=== PATIENT | male | born 1995 | race Caucasian/White ===

== ENCOUNTER 2018-04-06 15:49 | Emergency (ER) | payer OTHER, SELFPAY ==
[2018-04-06 15:49] VITALS: BP 162/97; PULSE 84; RESP 16; TEMP 36.6; O2SAT 98; BMI 35.6
--- NOTE | 2018-04-06 16:19 | ED.DCSUM_ITS ---
- ER Visit Summary Date of Service: 04/06/18 Chief Complaint: Left lower hanson laceration History of Present Illness: The patient is a 22 M accidentally struck his left lower leg versus a toe hitch. Causing a laceration. Denies other injuries. Tetanus up-to-date 1 year ago. Physical Examination: Well-appearing young male. Vital signs stable afebrile. No distress. H EENT exam unremarkable. Neck nontender. Lungs clear to auscultation. Heart regular rhythm no murmur. Chest wall nontender. Abdomen soft nontender. He is moving all 4 extremities. They are neurovascularly intact. His left lower leg as a vertical irregular laceration. This will need to be repaired. There is mild oozing of blood. Distally his left foot is neurovascularly intact with dorsi plantarflexion. Foot and ankle are nontender. He has normal range of motion. Normal touch sensation. Test Results: None Emergency Department Course and Treatment: Procedure note: Left lower leg laceration repair. Locally anesthetized with lidocaine. Cleaned with iodine. Irrigated wash with saline. Explored. Closed using simple interrupted # 6 4- 0 Ethilon suture. Proper hemostasis wound closure was obtained. Patient tolerated procedure well. He was instructed on wound care. Treatment Plan: Ice and elevate. Motrin for pain. Suture removal in 10 days. Watch for any signs of infection. Disposition: Discharged Impression: Left lower leg laceration with ER repair of 5 cm This note was generated with [employer] dictation software. It may contain incorrect words, spelling, and punctuation that were not noted in review of the chart prior to signing ED Disposition - Plan for ED Patient: Disposition: Home or Assisted Living Chief Complaint: Laceration Instructions: ED Laceration All Referrals: Dusty Tucker MD [Primary Care Provider] - 10 Day for suture removal Additional Instructions: Keep wound clean and dry. Wash daily with soap and water or peroxide and water. Dry thoroughly. May shower. Do not soak in dirty water. Motrin and/or Tylenol for pain. Ice to the area. Stitches out in 10 days. Watch for any signs of infection.
--- NOTE | 2018-04-06 16:24 | DCINST.ED_ITS ---
ED Disposition - Plan for ED Patient: Disposition: Home or Assisted Living Chief Complaint: Laceration Instructions: ED Laceration All Referrals: Dusty Tucker MD [Primary Care Provider] - 10 Day for suture removal Additional Instructions: Keep wound clean and dry. Wash daily with soap and water or peroxide and water. Dry thoroughly. May shower. Do not soak in dirty water. Motrin and/or Tylenol for pain. Ice to the area. Stitches out in 10 days. Watch for any signs of infection.
[2018-04-06] MEDS: Ibuprofen 600 MG Tablet PO (16:57)
== END 2018-04-06 17:47 | disposition home or self-care (01) ==
LOC: ED 17:38
PROVIDERS: Emergency Provider Emergency Medicine; Family Provider Family Medicine; PCP Family Medicine
DX: S81.812A Laceration without foreign body, left lower leg, initial encounter (principal); W22.8XXA Striking against or struck by other objects, initial encounter; Y93.9 Activity, unspecified; Y92.89 Other specified places as the place of occurrence of the external cause; Y99.9 Unspecified external cause status; Z72.0 Tobacco use
CPT/HCPCS: 12002; 99284

== ENCOUNTER 2018-05-06 15:12 | Outpatient (RCR) | payer OTHER, SELFPAY ==
[2018-05-06 15:37] VITALS: BP 147/92; PULSE 95; RESP 18; TEMP 37.5
--- NOTE | 2018-05-06 17:11 | PCM.WC.HP ---
(1) Ulcer of left lower extremity with fat layer exposed Status: Acute Current Visit: Yes Code(s): L97.922 - Non-pressure chronic ulcer of unspecified part of left lower leg with fat layer exposed (2) Traumatic leg ulcer Status: Acute Current Visit: Yes Code(s): L97.909 - Non-pressure chronic ulcer of unspecified part of unspecified lower leg with unspecified severity History of Present Illness Date of Service: 05/06/18 Chief Complaint: Non healing ulcer to left anterior lower leg. History of Wound: Non healing ulcer to left anterior lower leg that was obtained 04/13/18 when he hit his hanson on the hitch of his truck. He went to the ED where they closed it with sutures. His sister is a nurse and she removed the sutures a week later, then it re-opened after the sutures were removed. He went to his PCP, Dr. Tucker, last week who started him on Keflex 05/03/18 for redness and referred him to the wound center. 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 Will obtain wound cultures today 05/06/18 and start him on Natasha to the open ulcer. Past Medical History Past Medical History: No medical history reported. Denies history of diabetes, asthma or thyroid issues. Surgical History: no surgical history Allergies/Adverse Reactions: Allergies No Known Allergies Allergy (Verified 05/06/18 15:53) Home Medications: Ambulatory Orders Medication Instructions Recorded Cephalexin [Keflex] 500 mg PO 05/06/18 Smoking Status: Never smoker Review of Systems Constitutional: Denies: Anorexia, Chills, Fever Eyes: Denies: Blurred vision, Double vision HEENT: Denies: Difficulty Hearing, Head Aches Cardiovascular: Denies: Chest Pain, Edema Respiratory: Denies: Cough, Shortness of Breath, Shortness of breath at rest Gastrointestinal: Denies: Abdominal Pain Musculoskeletal: Denies: Muscle pain Skin: Reports: Wounds - Left lower anterior leg non healing ulcer Neurological: Denies: Balance problems, Blurred vision, Double vision, Difficulty swallowing Psychiatric: Denies: Anxiety, Depression, Homicidal Ideations, Suicidal Ideations Hematologic/ Lymphatic: Denies: Easy Bruising, Easy Bleeding, Hx of blood clot - Physical Exam Vital Signs Temp Pulse Resp BP 99.5 F H 95 18 147/92 H 05/06/18 15:37 10/23/18 15:37 05/06/18 15:37 05/06/18 15:37 General: Alert, Oriented x3, Cooperative HEENT: Atraumatic Oral: Moist Mucosa Lungs: Clear to auscultation, Normal air movement, No rhonchi Cardiovascular: Regular rate, Regular Rhythm Extremities: No edema, Capillary Refill Less than 3 Seconds Skin: Ulcer/ Wound - Left anterior lower leg ulcer with scabbing. No drainage. Wound Measurements and Assessment WC - Nurse 1 - General Ulcer Measurement Start: 05/06/18 15:16 Freq: Status: Active Protocol: Activity Type Activity Date Activity User E-Sign Co-Sign Detail Recorded Client Recorded Date Recorded By Document 05/06/18 15:37 DL [id number] 05/06/18 15:51 DL 05/06/18 15:37 Wound Center Nurse 1 [Ulcer Assessment] #1 L Hanson -Current Size (cm) - Length 2.8 -Current Size (cm) - Width 1.8 -Current Size (cm) - Depth 0.2 -Total Square Cm 5.04 -Photo Taken Yes -Classification - Thickness Unclassifiable (Eschar Covered ) -Exudate Amt Small (1-33%) -Exudate Type Sanguineous -Wound Margin Distinct, Outline Attached -Granulation Amt None Present (0 %) -Necrosis Amt Large (67-100%) -Necrotic Tissue Type Eschar -Structure Exposed N/A -Texture (Cat-wound Skin Appearance) Localized Edema -Moisture (Cat-wound Skin Appearance No Abnormality ) -Color (Cat-wound Skin Appearance) Erythema -Temperature (Cat-wound Skin No Abnormality Appearance) (Pt Warm) -Ulcer Cleansing Wound Cleanser -Foul Odor after Cleansing No -Anesthetic Used 4% Lidocaine Solution [Edema Assessment] -Right Calf (cm) 39 -Right Ankle (cm) 22.5 -Left Calf (cm) 40 -Left Ankle (cm) 23.4 WC - Nurse 2 - General Ulcer CM Notes Start: 05/06/18 15:16 Freq: Status: Active Protocol: Activity Type Activity Date Activity User E-Sign Co-Sign Detail Recorded Client Recorded Date Recorded By Document 05/06/18 16:27 JF [id number] 05/06/18 16:32 JF 05/06/18 16:27 Wound Center Nurse 2 [Procedure/Treatment] #1 L Hanson -Time 16:31 -Correct Patient Yes -Correct Side, Site, Position Yes -Correct Procedure Yes -Procedure Performed Yes -Type of Procedure Debridement -Clinical Debridement Subcutaneous -Post Debridement Size (cm) - Length 3.2 -Post Debridement Size (cm) - Width 1.4 -Post Debridement Size (cm) - Depth 0.6 -Total Square Cm 4.48 -Wound/Ulcer Outcome Not Healed -Ulcer Cleansing Rinsed/ Irrigated with Saline -Foul Odor after Cleansing No -Bioengineered Tissue No -Bleeding Controlled with Pressure -Treatment Response Procedure Tolerated Well [See Physician Procedure note for Specifics] Pain Scale: 0-10 Numeric [Pain] -Is Patient Pain Free? Yes Musculoskeletal: No Tenderness to Palpation of Joints or Extremities Neurological: Neuro grossly intact Psych/Mental Status: Normal Affect, Appropriate Debridement Note Post-Debridement Measurements/Treatment WC - Nurse 2 - General Ulcer CM Notes Start: 05/06/18 15:16 Freq: Status: Active Protocol: Activity Type Activity Date Activity User E-Sign Co-Sign Detail Recorded Client Recorded Date Recorded By Document 05/06/18 16:27 [id number] 05/06/18 16:32 05/06/18 16:27 Wound Center Nurse 2 #1 L Hanson -Time 16:31 -Correct Patient Yes -Correct Side, Site, Position Yes -Correct Procedure Yes -Procedure Performed Yes -Type of Procedure Debridement -Clinical Debridement Subcutaneous -Post Debridement Size (cm) - Length 3.2 -Post Debridement Size (cm) - Width 1.4 -Post Debridement Size (cm) - Depth 0.6 -Total Square Cm 4.48 -Wound/Ulcer Outcome Not Healed -Ulcer Cleansing Rinsed/ Irrigated with Saline -Foul Odor after Cleansing No -Bioengineered Tissue No -Bleeding Controlled with Pressure -Treatment Response Procedure Tolerated Well Pain Scale: 0-10 Numeric Is Patient Pain Free? Yes Wound debrided: Left lower anterior leg Laterality: Left Type of Debridement: Excisional debridement Anesthesia Used: 4% Lidocaine Solution Depth: Down to and including healthy tissue, in the subcutaneous layer Percentage of wound debrided: 100 Instrument Used: 7mm curette Tissue Removed: Subcutaneous tissue and slough. Severity: Fat Layer Exposed Amount of bleeding with debridement: Mild Bleeding Controlled with: Pressure Patient tolerated procedure well Removed non viable tissue and slough. Assessment/Plan Active Problems Ulcer of left lower extremity with fat layer exposed (Acute) Traumatic leg ulcer (Acute) Assessment: 1. Ulcer of left lower extremity with fat layer exposed (Acute). 2. Traumatic leg ulcer (Acute) Plan: The patient was seen and examined at the wound center today and was updated on the plan of care. A subcutaneous debridement was performed today. The patient tolerated the procedure well. The patients wound care will consist of Natasha to the left anterior, lower leg ulcer. He will alos wear tubigrip double layer compression to his left lower leg. Wound cultures obtained today. He will continue the Keflex as previously ordered by PCP. The patient educated on the importance of diet on wound healing and instructed to increase protein intake. Patient verbalized understanding. Patient will follow up at the wound healing center in one week with Jace Bojorquez and 2 weeks with . Code Visit Office Visits / Consults: [id number] OV L3 New - 25 modifier 111xxx-113xx: [id number] Sharon subq tissue 20 sq cm/<
--- NOTE | 2018-05-06 17:17 | HP.PCM_ITS ---
(1) Ulcer of left lower extremity with fat layer exposed Status: Acute Current Visit: Yes Code(s): L97.922 - Non-pressure chronic ulcer of unspecified part of left lower leg with fat layer exposed (2) Traumatic leg ulcer Status: Acute Current Visit: Yes Code(s): L97.909 - Non-pressure chronic ulcer of unspecified part of unspecified lower leg with unspecified severity History of Present Illness Date of Service: 05/06/18 Chief Complaint: Non healing ulcer to left anterior lower leg. History of Wound: Non healing ulcer to left anterior lower leg that was obtained 04/13/18 when he hit his hanson on the hitch of his truck. He went to the ED where they closed it with sutures. His sister is a nurse and she removed the sutures a week later, then it re-opened after the sutures were removed. He went to his PCP, Dr. Tucker, last week who started him on Keflex 05/03/18 for redness and referred him to the wound center. 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 Will obtain wound cultures today 05/06/18 and start him on Natasha to the open ulcer. Past Medical History Past Medical History: No medical history reported. Denies history of diabetes, asthma or thyroid issues. Surgical History: no surgical history Allergies/Adverse Reactions: Allergies No Known Allergies Allergy (Verified 05/06/18 15:53) Home Medications: Ambulatory Orders Medication Instructions Recorded Cephalexin [Keflex] 500 mg PO 05/06/18 Smoking Status: Never smoker Review of Systems Constitutional: Denies: Anorexia, Chills, Fever Eyes: Denies: Blurred vision, Double vision HEENT: Denies: Difficulty Hearing, Head Aches Cardiovascular: Denies: Chest Pain, Edema Respiratory: Denies: Cough, Shortness of Breath, Shortness of breath at rest Gastrointestinal: Denies: Abdominal Pain Musculoskeletal: Denies: Muscle pain Skin: Reports: Wounds - Left lower anterior leg non healing ulcer Neurological: Denies: Balance problems, Blurred vision, Double vision, Difficulty swallowing Psychiatric: Denies: Anxiety, Depression, Homicidal Ideations, Suicidal Ideations Hematologic/ Lymphatic: Denies: Easy Bruising, Easy Bleeding, Hx of blood clot - Physical Exam Vital Signs Temp Pulse Resp BP 99.5 F H 95 18 147/92 H 05/06/18 15:37 10/23/18 15:37 05/06/18 15:37 05/06/18 15:37 General: Alert, Oriented x3, Cooperative HEENT: Atraumatic Oral: Moist Mucosa Lungs: Clear to auscultation, Normal air movement, No rhonchi Cardiovascular: Regular rate, Regular Rhythm Extremities: No edema, Capillary Refill Less than 3 Seconds Skin: Ulcer/ Wound - Left anterior lower leg ulcer with scabbing. No drainage. Wound Measurements and Assessment WC - Nurse 1 - General Ulcer Measurement Start: 05/06/18 15:16 Freq: Status: Active Protocol: Activity Type Activity Date Activity User E-Sign Co-Sign Detail Recorded Client Recorded Date Recorded By Document 05/06/18 15:37 DL [id number] 05/06/18 15:51 DL 05/06/18 15:37 Wound Center Nurse 1 [Ulcer Assessment] #1 L Hanson -Current Size (cm) - Length 2.8 -Current Size (cm) - Width 1.8 -Current Size (cm) - Depth 0.2 -Total Square Cm 5.04 -Photo Taken Yes -Classification - Thickness Unclassifiable (Eschar Covered ) -Exudate Amt Small (1-33%) -Exudate Type Sanguineous -Wound Margin Distinct, Outline Attached -Granulation Amt None Present (0 %) -Necrosis Amt Large (67-100%) -Necrotic Tissue Type Eschar -Structure Exposed N/A -Texture (Cat-wound Skin Appearance) Localized Edema -Moisture (Cat-wound Skin Appearance No Abnormality ) -Color (Cat-wound Skin Appearance) Erythema -Temperature (Cat-wound Skin No Abnormality Appearance) (Pt Warm) -Ulcer Cleansing Wound Cleanser -Foul Odor after Cleansing No -Anesthetic Used 4% Lidocaine Solution [Edema Assessment] -Right Calf (cm) 39 -Right Ankle (cm) 22.5 -Left Calf (cm) 40 -Left Ankle (cm) 23.4 WC - Nurse 2 - General Ulcer CM Notes Start: 05/06/18 15:16 Freq: Status: Active Protocol: Activity Type Activity Date Activity User E-Sign Co-Sign Detail Recorded Client Recorded Date Recorded By Document 05/06/18 16:27 [email or web address] [id number] 05/06/18 16:32 JF 05/06/18 16:27 Wound Center Nurse 2 [Procedure/Treatment] #1 L Hanson -Time 16:31 -Correct Patient Yes -Correct Side, Site, Position Yes -Correct Procedure Yes -Procedure Performed Yes -Type of Procedure Debridement -Clinical Debridement Subcutaneous -Post Debridement Size (cm) - Length 3.2 -Post Debridement Size (cm) - Width 1.4 -Post Debridement Size (cm) - Depth 0.6 -Total Square Cm 4.48 -Wound/Ulcer Outcome Not Healed -Ulcer Cleansing Rinsed/ Irrigated with Saline -Foul Odor after Cleansing No -Bioengineered Tissue No -Bleeding Controlled with Pressure -Treatment Response Procedure Tolerated Well [See Physician Procedure note for Specifics] Pain Scale: 0-10 Numeric [Pain] -Is Patient Pain Free? Yes Musculoskeletal: No Tenderness to Palpation of Joints or Extremities Neurological: Neuro grossly intact Psych/Mental Status: Normal Affect, Appropriate Debridement Note Post-Debridement Measurements/Treatment WC - Nurse 2 - General Ulcer CM Notes Start: 05/06/18 15:16 Freq: Status: Active Protocol: Activity Type Activity Date Activity User E-Sign Co-Sign Detail Recorded Client Recorded Date Recorded By Document 05/06/18 16:27 [id number] 05/06/18 16:32 05/06/18 16:27 Wound Center Nurse 2 #1 L Hanson -Time 16:31 -Correct Patient Yes -Correct Side, Site, Position Yes -Correct Procedure Yes -Procedure Performed Yes -Type of Procedure Debridement -Clinical Debridement Subcutaneous -Post Debridement Size (cm) - Length 3.2 -Post Debridement Size (cm) - Width 1.4 -Post Debridement Size (cm) - Depth 0.6 -Total Square Cm 4.48 -Wound/Ulcer Outcome Not Healed -Ulcer Cleansing Rinsed/ Irrigated with Saline -Foul Odor after Cleansing No -Bioengineered Tissue No -Bleeding Controlled with Pressure -Treatment Response Procedure Tolerated Well Pain Scale: 0-10 Numeric Is Patient Pain Free? Yes Wound debrided: Left lower anterior leg Laterality: Left Type of Debridement: Excisional debridement Anesthesia Used: 4% Lidocaine Solution Depth: Down to and including healthy tissue, in the subcutaneous layer Percentage of wound debrided: 100 Instrument Used: 7mm curette Tissue Removed: Subcutaneous tissue and slough. Severity: Fat Layer Exposed Amount of bleeding with debridement: Mild Bleeding Controlled with: Pressure Patient tolerated procedure well Removed non viable tissue and slough. Assessment/Plan Active Problems Ulcer of left lower extremity with fat layer exposed (Acute) Traumatic leg ulcer (Acute) Assessment: 1. Ulcer of left lower extremity with fat layer exposed (Acute). 2. Traumatic leg ulcer (Acute) Plan: The patient was seen and examined at the wound center today and was updated on the plan of care. A subcutaneous debridement was performed today. The patient tolerated the procedure well. The patients wound care will consist of Natasha to the left anterior, lower leg ulcer. He will alos wear tubigrip double layer compression to his left lower leg. Wound cultures obtained today. He will continue the Keflex as previously ordered by PCP. The patient educated on the importance of diet on wound healing and instructed to increase protein intake. Patient verbalized understanding. Patient will follow up at the wound healing center in one week with Jace Bojorquez and 2 weeks with . Code Visit Office Visits / Consults: [id number] OV L3 New - 25 modifier 111xxx-113xx: [id number] Sharon subq tissue 20 sq cm/<
--- NOTE | 2018-05-09 16:47 | WC ---
Culture reports reviewed by Erwin Marti NP. Order for AUGMENTIN 875 mg p.o. BID X's 10 days. Patient cell # called since no pharmacy is listed in Medical Record. Voice Mail message left.
== END 2018-05-14 23:59 ==
LOC: WC 15:12
PROVIDERS: Family Provider Family Medicine; PCP Family Medicine; Visit Provider Nurse Practitioner Family
DX: L97.822 Non-pressure chronic ulcer of other part of left lower leg with fat layer exposed (principal)
CPT/HCPCS: 11042; 87070; 87075; 87077; 87186; 87205; 99213; G0463

== ENCOUNTER 2018-06-10 16:00 | Outpatient (RCR) | payer OTHER, SELFPAY ==
[2018-05-15 02:12] VITALS: BP 147/92; PULSE 95; RESP 18; TEMP 37.5
[2018-05-15 14:24] VITALS: BP 147/96; PULSE 91; RESP 16; TEMP 36.7
[2018-05-20 14:36] VITALS: BP 141/99; PULSE 108; RESP 18; TEMP 37.3
--- NOTE | 2018-05-20 16:11 | PCM.WC.PN ---
(1) Ulcer of left lower extremity with fat layer exposed Status: Acute Current Visit: Yes Code(s): L97.922 - Non-pressure chronic ulcer of unspecified part of left lower leg with fat layer exposed (2) Traumatic leg ulcer Status: Acute Current Visit: Yes Code(s): L97.909 - Non-pressure chronic ulcer of unspecified part of unspecified lower leg with unspecified severity Type of Wound Date of Service: 05/20/18 Chief Complaint: Non healing ulcer to left anterior lower leg. History of Wound: Non healing ulcer to left anterior lower leg that was obtained 04/13/18 when he hit his hanson on the hitch of his truck. He went to the ED where they closed it with sutures. His sister is a nurse and she removed the sutures a week later, then it re-opened after the sutures were removed. He went to his PCP, Dr. Tucker, last week who started him on Keflex 05/03/18 for redness and referred him to the wound center. 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 Will obtain wound cultures today 05/06/18 and start him on Natasha to the open ulcer. Progress of Wound: Wound is improving, patient is utilizing daily Natasha dressing changes, patient is tolerating antibiotics well. Wound culture did show strep agalactai. - Physical Exam Vital Signs Temp Pulse Resp BP 99.1 F 108 H 18 141/99 H 05/20/18 14:36 05/20/18 14:36 05/20/18 14:36 05/20/18 14:36 General: Alert, Oriented x3, Cooperative HEENT: Atraumatic Oral: Moist Mucosa Lungs: Normal air movement Cardiovascular: Regular rate Extremities: No edema, Capillary Refill Less than 3 Seconds, Peripheral Pulses Normal Skin: Ulcer/ Wound - Left anterior lower leg. Wound Measurements and Assessment WC - Nurse 1 - General Ulcer Measurement Start: 05/15/18 14:23 Freq: Status: Active Protocol: Activity Type Activity Date Activity User E-Sign Co-Sign Detail Recorded Client Recorded Date Recorded By Document 05/20/18 14:36 TM [id number] 05/20/18 14:38 TM 05/20/18 14:36 Wound Center Nurse 1 [Ulcer Assessment] #1 L Hanson -Combined with other wound No -Current Size (cm) - Length 2.0 -Current Size (cm) - Width 1.0 -Current Size (cm) - Depth 0.2 -Total Square Cm 2.00 -Photo Taken No -Epithelialization Small 1-33% -Tunneling No -Undermining/Tunneling No -Circular Undermining No -Classification - Thickness Full Thickness without Exposed Support Structure -Exudate Amt Small (1-33%) -Exudate Type Serosanguineous -Wound Margin Distinct, Outline Attached -Granulation Amt Medium (34-66%) -Granulation Quality Red -Slough/Fibrin Yes -Necrosis Amt Small (1-33%) -Necrotic Tissue Type Adherent Slough -Structure Exposed Fascia Fat Layer Exposed -Texture (Cat-wound Skin Appearance) Assessed Scarring -Moisture (Cat-wound Skin Appearance Assessed ) Maceration -Color (Cat-wound Skin Appearance) Assessed Erythema -Temperature (Cat-wound Skin No Abnormality Appearance) (Pt Warm) -Tenderness on Palpation (Cat-wound No Skin Appearance) -Ulcer Cleansing Rinsed/ Irrigated with Saline -Foul Odor after Cleansing No -Anesthetic Used 4% Lidocaine Solution [Edema Assessment] -Lower Limb Edema Present Yes -Left Calf (cm) 40.0 -Point of Measurement (cm from the 24.0 medial instep) WC - Nurse 2 - General Ulcer CM Notes Start: 05/15/18 14:23 Freq: Status: Active Protocol: Activity Type Activity Date Activity User E-Sign Co-Sign Detail Recorded Client Recorded Date Recorded By Document 05/20/18 14:55 [email or web address] [id number] 05/20/18 14:56 [email or web address] 05/20/18 14:55 Wound Center Nurse 2 [Procedure/Treatment] #1 L Hanson -Time 14:55 -Correct Patient Yes -Correct Side, Site, Position Yes -Correct Procedure Yes -Procedure Performed Yes -Type of Procedure Debridement -Clinical Debridement Subcutaneous -Post Debridement Size (cm) - Length 2.0 -Post Debridement Size (cm) - Width 1.1 -Post Debridement Size (cm) - Depth 0.4 -Total Square Cm 2.20 -Wound/Ulcer Outcome Not Healed -Ulcer Cleansing Rinsed/ Irrigated with Saline -Foul Odor after Cleansing No -Bioengineered Tissue No -Bleeding Controlled with Pressure -Treatment Response Procedure Tolerated Well [See Physician Procedure note for Specifics] Pain Scale: 0-10 Numeric [Pain] -Is Patient Pain Free? Yes Debridement Note Post-Debridement Measurements/Treatment WC - Nurse 2 - General Ulcer CM Notes Start: 05/15/18 14:23 Freq: Status: Active Protocol: Activity Type Activity Date Activity User E-Sign Co-Sign Detail Recorded Client Recorded Date Recorded By Document 05/15/18 15:17 [id number] 05/15/18 15:18 Document 05/20/18 14:55 [id number] 05/20/18 14:56 05/15/18 05/20/18 15:17 14:55 Wound Center Nurse 2 #1 L Hanson -Time 15:17 14:55 -Correct Patient Yes Yes -Correct Side, Site, Position Yes Yes -Correct Procedure Yes Yes -Procedure Performed Yes Yes -Type of Procedure Debridement Debridement -Clinical Debridement Subcutaneous Subcutaneous -Post Debridement Size (cm) - Length 3.0 2.0 -Post Debridement Size (cm) - Width 1.5 1.1 -Post Debridement Size (cm) - Depth 0.5 0.4 -Total Square Cm 4.50 2.20 -Wound/Ulcer Outcome Not Healed Not Healed -Ulcer Cleansing Rinsed/ Rinsed/ Irrigated with Irrigated with Saline Saline -Foul Odor after Cleansing No No -Bioengineered Tissue No No -Topical Lidocaine (%) 4 -Bleeding Controlled with Pressure Pressure -Treatment Response Procedure Procedure Tolerated Well Tolerated Well Pain Scale: 0-10 Numeric Is Patient Pain Free? Yes Yes Wound debrided: Left anterior lower leg Laterality: Left Type of Debridement: Excisional debridement Anesthesia Used: 4% Lidocaine Solution Depth: Down to and including healthy tissue, in the subcutaneous layer Percentage of wound debrided: 100 Instrument Used: 3mm curette Tissue Removed: Subcutaneous tissue and slough Severity: Fat Layer Exposed Amount of bleeding with debridement: Mild Bleeding Controlled with: Pressure Patient tolerated procedure well Assessment/Plan Active Problems Ulcer of left lower extremity with fat layer exposed (Acute) Traumatic leg ulcer (Acute) Assessment: 1. Ulcer of left lower extremity with fat layer exposed (Acute). 2. Traumatic leg ulcer (Acute) Plan: The patient was seen and examined at the wound center today and was updated on the plan of care. A subcutaneous debridement was performed today. The patient tolerated the procedure well. The patients wound care will consist of Natasha to the left anterior, lower leg ulcer. He will also wear tubigrip double layer compression to his left lower leg. Wound cultures collected previously and showed Streptococcus agalactial, patient to complete the Keflex as previously ordered. The patient educated on the importance of diet on wound healing and instructed to increase protein intake. Patient verbalized understanding. Patient will follow up at the wound healing center in one week. Code Visit 111xxx-113xx: [id number] Sharon subq tissue 20 sq cm/<
--- NOTE | 2018-05-21 09:47 | PCM.WC.PN ---
(1) Traumatic leg ulcer Status: Acute Current Visit: Yes Code(s): L97.909 - Non-pressure chronic ulcer of unspecified part of unspecified lower leg with unspecified severity (2) Ulcer of left lower extremity with fat layer exposed Status: Acute Current Visit: Yes Code(s): L97.922 - Non-pressure chronic ulcer of unspecified part of left lower leg with fat layer exposed Type of Wound Date of Service: 05/15/18 Chief Complaint: Non healing ulcer to left anterior lower leg. History of Wound: Non healing ulcer to left anterior lower leg that was obtained 04/13/18 when he hit his hanson on the hitch of his truck. He went to the ED where they closed it with sutures. His sister is a nurse and she removed the sutures a week later, then it re-opened after the sutures were removed. He went to his PCP, Dr. Tucker, last week who started him on Keflex 05/03/18 for redness and referred him to the wound center. 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 Will obtain wound cultures today 05/06/18 and start him on Natasha to the open ulcer. Progress of Wound: Wound is improving, patient is utilizing daily Natasha dressing changes, patient is tolerating the antibiotic well without any negative side effects at this time. Wound culture did show strep agalactai. - Physical Exam Vital Signs Temp Pulse Resp BP 99.1 F 108 H 18 141/99 H 05/20/18 14:36 05/20/18 14:36 05/20/18 14:36 05/20/18 14:36 General: Alert, Oriented x3, Cooperative, No apparent distress HEENT: PERRLA, EOMI Oral: Moist Mucosa Cardiovascular: Regular rate Extremities: No clubbing, No cyanosis, No edema, Peripheral Pulses Normal Skin: Ulcer/ Wound - Left lower extremity ulceration with adherent slough present, slightly erythematous wound edges, no signs of cellulitis or infection at this time, no malodor or purulent drainage Wound Measurements and Assessment WC - Nurse 1 - General Ulcer Measurement Start: 05/15/18 14:23 Freq: Status: Active Protocol: Activity Type Activity Date Activity User E-Sign Co-Sign Detail Recorded Client Recorded Date Recorded By Document 05/20/18 14:36 [id number] 05/20/18 14:38 TM 05/20/18 14:36 Wound Center Nurse 1 [Ulcer Assessment] #1 L Hanson -Combined with other wound No -Current Size (cm) - Length 2.0 -Current Size (cm) - Width 1.0 -Current Size (cm) - Depth 0.2 -Total Square Cm 2.00 -Photo Taken No -Epithelialization Small 1-33% -Tunneling No -Undermining/Tunneling No -Circular Undermining No -Classification - Thickness Full Thickness without Exposed Support Structure -Exudate Amt Small (1-33%) -Exudate Type Serosanguineous -Wound Margin Distinct, Outline Attached -Granulation Amt Medium (34-66%) -Granulation Quality Red -Slough/Fibrin Yes -Necrosis Amt Small (1-33%) -Necrotic Tissue Type Adherent Slough -Structure Exposed Fascia Fat Layer Exposed -Texture (Cat-wound Skin Appearance) Assessed Scarring -Moisture (Cat-wound Skin Appearance Assessed ) Maceration -Color (Cat-wound Skin Appearance) Assessed Erythema -Temperature (Cat-wound Skin No Abnormality Appearance) (Pt Warm) -Tenderness on Palpation (Cat-wound No Skin Appearance) -Ulcer Cleansing Rinsed/ Irrigated with Saline -Foul Odor after Cleansing No -Anesthetic Used 4% Lidocaine Solution [Edema Assessment] -Lower Limb Edema Present Yes -Left Calf (cm) 40.0 -Point of Measurement (cm from the 24.0 medial instep) WC - Nurse 2 - General Ulcer CM Notes Start: 05/15/18 14:23 Freq: Status: Active Protocol: Activity Type Activity Date Activity User E-Sign Co-Sign Detail Recorded Client Recorded Date Recorded By Document 05/20/18 14:55 [id number] 05/20/18 14:56 05/20/18 14:55 Wound Center Nurse 2 [Procedure/Treatment] #1 L Hanson -Time 14:55 -Correct Patient Yes -Correct Side, Site, Position Yes -Correct Procedure Yes -Procedure Performed Yes -Type of Procedure Debridement -Clinical Debridement Subcutaneous -Post Debridement Size (cm) - Length 2.0 -Post Debridement Size (cm) - Width 1.1 -Post Debridement Size (cm) - Depth 0.4 -Total Square Cm 2.20 -Wound/Ulcer Outcome Not Healed -Ulcer Cleansing Rinsed/ Irrigated with Saline -Foul Odor after Cleansing No -Bioengineered Tissue No -Bleeding Controlled with Pressure -Treatment Response Procedure Tolerated Well [See Physician Procedure note for Specifics] Pain Scale: 0-10 Numeric [Pain] -Is Patient Pain Free? Yes Neurological: Neuro grossly intact Psych/Mental Status: Normal Affect, Appropriate, Alert and oriented to time, place, person, mood and affect Debridement Note Post-Debridement Measurements/Treatment WC - Nurse 2 - General Ulcer CM Notes Start: 05/15/18 14:23 Freq: Status: Active Protocol: Activity Type Activity Date Activity User E-Sign Co-Sign Detail Recorded Client Recorded Date Recorded By Document 05/15/18 15:17 TM [id number] 05/15/18 15:18 TM Document 05/20/18 14:55 [id number] 05/20/18 14:56 05/15/18 05/20/18 15:17 14:55 Wound Center Nurse 2 #1 L Hanson -Time 15:17 14:55 -Correct Patient Yes Yes -Correct Side, Site, Position Yes Yes -Correct Procedure Yes Yes -Procedure Performed Yes Yes -Type of Procedure Debridement Debridement -Clinical Debridement Subcutaneous Subcutaneous -Post Debridement Size (cm) - Length 3.0 2.0 -Post Debridement Size (cm) - Width 1.5 1.1 -Post Debridement Size (cm) - Depth 0.5 0.4 -Total Square Cm 4.50 2.20 -Wound/Ulcer Outcome Not Healed Not Healed -Ulcer Cleansing Rinsed/ Rinsed/ Irrigated with Irrigated with Saline Saline -Foul Odor after Cleansing No No -Bioengineered Tissue No No -Topical Lidocaine (%) 4 -Bleeding Controlled with Pressure Pressure -Treatment Response Procedure Procedure Tolerated Well Tolerated Well Pain Scale: 0-10 Numeric Is Patient Pain Free? Yes Yes Wound debrided: Left lower extremity ulcer Laterality: Left Type of Debridement: Excisional debridement Anesthesia Used: 5% Lidocaine Gel Depth: in the subcutaneous layer Percentage of wound debrided: 100 Instrument Used: 5mm curette Tissue Removed: Slough and devitalized tissue Severity: Fat Layer Exposed Amount of bleeding with debridement: Mild Bleeding Controlled with: Pressure Patient tolerated procedure well Assessment/Plan Active Problems Ulcer of left lower extremity with fat layer exposed (Acute) Traumatic leg ulcer (Acute) Assessment: 1. Ulcer of left lower extremity with fat layer exposed (Acute). 2. Traumatic leg ulcer (Acute) Plan: The patient was seen and examined at the wound center today and was updated on the plan of care. A subcutaneous debridement was performed today. The patient tolerated the procedure well. The patients wound care will consist of Natasha to the left anterior, lower leg ulcer. He will also wear tubigrip double layer compression to his left lower leg. Wound cultures collected previously and showed Streptococcus, patient to complete the Keflex as previously ordered by PCP. The patient educated on the importance of diet on wound healing and instructed to increase protein intake. Patient verbalized understanding. Patient will follow up at the wound healing center in one week with Macey Marti or sooner if needed. Code Visit 111xxx-113xx: [id number] Sharon subq tissue 20 sq cm/<
--- NOTE | 2018-05-21 09:51 | PN.PCM_ITS ---
(1) Traumatic leg ulcer Status: Acute Current Visit: Yes Code(s): L97.909 - Non-pressure chronic ulcer of unspecified part of unspecified lower leg with unspecified severity (2) Ulcer of left lower extremity with fat layer exposed Status: Acute Current Visit: Yes Code(s): L97.922 - Non-pressure chronic ulcer of unspecified part of left lower leg with fat layer exposed Type of Wound Date of Service: 05/15/18 Chief Complaint: Non healing ulcer to left anterior lower leg. History of Wound: Non healing ulcer to left anterior lower leg that was obtained 04/13/18 when he hit his hanson on the hitch of his truck. He went to the ED where they closed it with sutures. His sister is a nurse and she removed the sutures a week later, then it re-opened after the sutures were removed. He went to his PCP, Dr. Tucker, last week who started him on Keflex 05/03/18 for redness and referred him to the wound center. 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 Will obtain wound cultures today 05/06/18 and start him on Natasha to the open ulcer. Progress of Wound: Wound is improving, patient is utilizing daily Natasha dressing changes, patient is tolerating the antibiotic well without any negative side effects at this time. Wound culture did show strep agalactai. - Physical Exam Vital Signs Temp Pulse Resp BP 99.1 F 108 H 18 141/99 H 05/20/18 14:36 05/20/18 14:36 05/20/18 14:36 05/20/18 14:36 General: Alert, Oriented x3, Cooperative, No apparent distress HEENT: PERRLA, EOMI Oral: Moist Mucosa Cardiovascular: Regular rate Extremities: No clubbing, No cyanosis, No edema, Peripheral Pulses Normal Skin: Ulcer/ Wound - Left lower extremity ulceration with adherent slough present, slightly erythematous wound edges, no signs of cellulitis or infection at this time, no malodor or purulent drainage Wound Measurements and Assessment WC - Nurse 1 - General Ulcer Measurement Start: 05/15/18 14:23 Freq: Status: Active Protocol: Activity Type Activity Date Activity User E-Sign Co-Sign Detail Recorded Client Recorded Date Recorded By Document 05/20/18 14:36 [id number] 05/20/18 14:38 TM 05/20/18 14:36 Wound Center Nurse 1 [Ulcer Assessment] #1 L Hanson -Combined with other wound No -Current Size (cm) - Length 2.0 -Current Size (cm) - Width 1.0 -Current Size (cm) - Depth 0.2 -Total Square Cm 2.00 -Photo Taken No -Epithelialization Small 1-33% -Tunneling No -Undermining/Tunneling No -Circular Undermining No -Classification - Thickness Full Thickness without Exposed Support Structure -Exudate Amt Small (1-33%) -Exudate Type Serosanguineous -Wound Margin Distinct, Outline Attached -Granulation Amt Medium (34-66%) -Granulation Quality Red -Slough/Fibrin Yes -Necrosis Amt Small (1-33%) -Necrotic Tissue Type Adherent Slough -Structure Exposed Fascia Fat Layer Exposed -Texture (Cat-wound Skin Appearance) Assessed Scarring -Moisture (Cat-wound Skin Appearance Assessed ) Maceration -Color (Cat-wound Skin Appearance) Assessed Erythema -Temperature (Cat-wound Skin No Abnormality Appearance) (Pt Warm) -Tenderness on Palpation (Cat-wound No Skin Appearance) -Ulcer Cleansing Rinsed/ Irrigated with Saline -Foul Odor after Cleansing No -Anesthetic Used 4% Lidocaine Solution [Edema Assessment] -Lower Limb Edema Present Yes -Left Calf (cm) 40.0 -Point of Measurement (cm from the 24.0 medial instep) WC - Nurse 2 - General Ulcer CM Notes Start: 05/15/18 14:23 Freq: Status: Active Protocol: Activity Type Activity Date Activity User E-Sign Co-Sign Detail Recorded Client Recorded Date Recorded By Document 05/20/18 14:55 [id number] 05/20/18 14:56 05/20/18 14:55 Wound Center Nurse 2 [Procedure/Treatment] #1 L Hanson -Time 14:55 -Correct Patient Yes -Correct Side, Site, Position Yes -Correct Procedure Yes -Procedure Performed Yes -Type of Procedure Debridement -Clinical Debridement Subcutaneous -Post Debridement Size (cm) - Length 2.0 -Post Debridement Size (cm) - Width 1.1 -Post Debridement Size (cm) - Depth 0.4 -Total Square Cm 2.20 -Wound/Ulcer Outcome Not Healed -Ulcer Cleansing Rinsed/ Irrigated with Saline -Foul Odor after Cleansing No -Bioengineered Tissue No -Bleeding Controlled with Pressure -Treatment Response Procedure Tolerated Well [See Physician Procedure note for Specifics] Pain Scale: 0-10 Numeric [Pain] -Is Patient Pain Free? Yes Neurological: Neuro grossly intact Psych/Mental Status: Normal Affect, Appropriate, Alert and oriented to time, place, person, mood and affect Debridement Note Post-Debridement Measurements/Treatment WC - Nurse 2 - General Ulcer CM Notes Start: 05/15/18 14:23 Freq: Status: Active Protocol: Activity Type Activity Date Activity User E-Sign Co-Sign Detail Recorded Client Recorded Date Recorded By Document 05/15/18 15:17 TM [id number] 05/15/18 15:18 TM Document 05/20/18 14:55 [id number] 05/20/18 14:56 05/15/18 05/20/18 15:17 14:55 Wound Center Nurse 2 #1 L Hanson -Time 15:17 14:55 -Correct Patient Yes Yes -Correct Side, Site, Position Yes Yes -Correct Procedure Yes Yes -Procedure Performed Yes Yes -Type of Procedure Debridement Debridement -Clinical Debridement Subcutaneous Subcutaneous -Post Debridement Size (cm) - Length 3.0 2.0 -Post Debridement Size (cm) - Width 1.5 1.1 -Post Debridement Size (cm) - Depth 0.5 0.4 -Total Square Cm 4.50 2.20 -Wound/Ulcer Outcome Not Healed Not Healed -Ulcer Cleansing Rinsed/ Rinsed/ Irrigated with Irrigated with Saline Saline -Foul Odor after Cleansing No No -Bioengineered Tissue No No -Topical Lidocaine (%) 4 -Bleeding Controlled with Pressure Pressure -Treatment Response Procedure Procedure Tolerated Well Tolerated Well Pain Scale: 0-10 Numeric Is Patient Pain Free? Yes Yes Wound debrided: Left lower extremity ulcer Laterality: Left Type of Debridement: Excisional debridement Anesthesia Used: 5% Lidocaine Gel Depth: in the subcutaneous layer Percentage of wound debrided: 100 Instrument Used: 5mm curette Tissue Removed: Slough and devitalized tissue Severity: Fat Layer Exposed Amount of bleeding with debridement: Mild Bleeding Controlled with: Pressure Patient tolerated procedure well Assessment/Plan Active Problems Ulcer of left lower extremity with fat layer exposed (Acute) Traumatic leg ulcer (Acute) Assessment: 1. Ulcer of left lower extremity with fat layer exposed (Acute). 2. Traumatic leg ulcer (Acute) Plan: The patient was seen and examined at the wound center today and was updated on the plan of care. A subcutaneous debridement was performed today. The patient tolerated the procedure well. The patients wound care will consist of Natasha to the left anterior, lower leg ulcer. He will also wear tubigrip double layer compression to his left lower leg. Wound cultures collected previously and showed Streptococcus, patient to complete the Keflex as previously ordered by PCP. The patient educated on the importance of diet on wound healing and instructed to increase protein intake. Patient verbalized understanding. Patient will follow up at the wound healing center in one week with Macey Marti or sooner if needed. Code Visit 111xxx-113xx: [id number] Sharon subq tissue 20 sq cm/<
--- NOTE | 2018-05-21 16:16 | PN.PCM_ITS ---
(1) Ulcer of left lower extremity with fat layer exposed Status: Acute Current Visit: Yes Code(s): L97.922 - Non-pressure chronic ulcer of unspecified part of left lower leg with fat layer exposed (2) Traumatic leg ulcer Status: Acute Current Visit: Yes Code(s): L97.909 - Non-pressure chronic ulcer of unspecified part of unspecified lower leg with unspecified severity Type of Wound Date of Service: 05/20/18 Chief Complaint: Non healing ulcer to left anterior lower leg. History of Wound: Non healing ulcer to left anterior lower leg that was obtained 04/13/18 when he hit his hanson on the hitch of his truck. He went to the ED where they closed it with sutures. His sister is a nurse and she removed the sutures a week later, then it re-opened after the sutures were removed. He went to his PCP, Dr. Tucker, last week who started him on Keflex 05/03/18 for redness and referred him to the wound center. 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 Will obtain wound cultures today 05/06/18 and start him on Natasha to the open ulcer. Progress of Wound: Wound is improving, patient is utilizing daily Natasha dressing changes, patient is tolerating antibiotics well. Wound culture did show strep agalactai. - Physical Exam Vital Signs Temp Pulse Resp BP 99.1 F 108 H 18 141/99 H 05/20/18 14:36 05/20/18 14:36 05/20/18 14:36 05/20/18 14:36 General: Alert, Oriented x3, Cooperative HEENT: Atraumatic Oral: Moist Mucosa Lungs: Normal air movement Cardiovascular: Regular rate Extremities: No edema, Capillary Refill Less than 3 Seconds, Peripheral Pulses Normal Skin: Ulcer/ Wound - Left anterior lower leg. Wound Measurements and Assessment WC - Nurse 1 - General Ulcer Measurement Start: 05/15/18 14:23 Freq: Status: Active Protocol: Activity Type Activity Date Activity User E-Sign Co-Sign Detail Recorded Client Recorded Date Recorded By Document 05/20/18 14:36 TM [id number] 05/20/18 14:38 TM 05/20/18 14:36 Wound Center Nurse 1 [Ulcer Assessment] #1 L Hanson -Combined with other wound No -Current Size (cm) - Length 2.0 -Current Size (cm) - Width 1.0 -Current Size (cm) - Depth 0.2 -Total Square Cm 2.00 -Photo Taken No -Epithelialization Small 1-33% -Tunneling No -Undermining/Tunneling No -Circular Undermining No -Classification - Thickness Full Thickness without Exposed Support Structure -Exudate Amt Small (1-33%) -Exudate Type Serosanguineous -Wound Margin Distinct, Outline Attached -Granulation Amt Medium (34-66%) -Granulation Quality Red -Slough/Fibrin Yes -Necrosis Amt Small (1-33%) -Necrotic Tissue Type Adherent Slough -Structure Exposed Fascia Fat Layer Exposed -Texture (Cat-wound Skin Appearance) Assessed Scarring -Moisture (Cat-wound Skin Appearance Assessed ) Maceration -Color (Cat-wound Skin Appearance) Assessed Erythema -Temperature (Cat-wound Skin No Abnormality Appearance) (Pt Warm) -Tenderness on Palpation (Cat-wound No Skin Appearance) -Ulcer Cleansing Rinsed/ Irrigated with Saline -Foul Odor after Cleansing No -Anesthetic Used 4% Lidocaine Solution [Edema Assessment] -Lower Limb Edema Present Yes -Left Calf (cm) 40.0 -Point of Measurement (cm from the 24.0 medial instep) WC - Nurse 2 - General Ulcer CM Notes Start: 05/15/18 14:23 Freq: Status: Active Protocol: Activity Type Activity Date Activity User E-Sign Co-Sign Detail Recorded Client Recorded Date Recorded By Document 05/20/18 14:55 [email or web address] [id number] 05/20/18 14:56 [email or web address] 05/20/18 14:55 Wound Center Nurse 2 [Procedure/Treatment] #1 L Hanson -Time 14:55 -Correct Patient Yes -Correct Side, Site, Position Yes -Correct Procedure Yes -Procedure Performed Yes -Type of Procedure Debridement -Clinical Debridement Subcutaneous -Post Debridement Size (cm) - Length 2.0 -Post Debridement Size (cm) - Width 1.1 -Post Debridement Size (cm) - Depth 0.4 -Total Square Cm 2.20 -Wound/Ulcer Outcome Not Healed -Ulcer Cleansing Rinsed/ Irrigated with Saline -Foul Odor after Cleansing No -Bioengineered Tissue No -Bleeding Controlled with Pressure -Treatment Response Procedure Tolerated Well [See Physician Procedure note for Specifics] Pain Scale: 0-10 Numeric [Pain] -Is Patient Pain Free? Yes Debridement Note Post-Debridement Measurements/Treatment WC - Nurse 2 - General Ulcer CM Notes Start: 05/15/18 14:23 Freq: Status: Active Protocol: Activity Type Activity Date Activity User E-Sign Co-Sign Detail Recorded Client Recorded Date Recorded By Document 05/15/18 15:17 [id number] 05/15/18 15:18 Document 05/20/18 14:55 [id number] 05/20/18 14:56 05/15/18 05/20/18 15:17 14:55 Wound Center Nurse 2 #1 L Hanson -Time 15:17 14:55 -Correct Patient Yes Yes -Correct Side, Site, Position Yes Yes -Correct Procedure Yes Yes -Procedure Performed Yes Yes -Type of Procedure Debridement Debridement -Clinical Debridement Subcutaneous Subcutaneous -Post Debridement Size (cm) - Length 3.0 2.0 -Post Debridement Size (cm) - Width 1.5 1.1 -Post Debridement Size (cm) - Depth 0.5 0.4 -Total Square Cm 4.50 2.20 -Wound/Ulcer Outcome Not Healed Not Healed -Ulcer Cleansing Rinsed/ Rinsed/ Irrigated with Irrigated with Saline Saline -Foul Odor after Cleansing No No -Bioengineered Tissue No No -Topical Lidocaine (%) 4 -Bleeding Controlled with Pressure Pressure -Treatment Response Procedure Procedure Tolerated Well Tolerated Well Pain Scale: 0-10 Numeric Is Patient Pain Free? Yes Yes Wound debrided: Left anterior lower leg Laterality: Left Type of Debridement: Excisional debridement Anesthesia Used: 4% Lidocaine Solution Depth: Down to and including healthy tissue, in the subcutaneous layer Percentage of wound debrided: 100 Instrument Used: 3mm curette Tissue Removed: Subcutaneous tissue and slough Severity: Fat Layer Exposed Amount of bleeding with debridement: Mild Bleeding Controlled with: Pressure Patient tolerated procedure well Assessment/Plan Active Problems Ulcer of left lower extremity with fat layer exposed (Acute) Traumatic leg ulcer (Acute) Assessment: 1. Ulcer of left lower extremity with fat layer exposed (Acute). 2. Traumatic leg ulcer (Acute) Plan: The patient was seen and examined at the wound center today and was updated on the plan of care. A subcutaneous debridement was performed today. The patient tolerated the procedure well. The patients wound care will consist of Natasha to the left anterior, lower leg ulcer. He will also wear tubigrip double layer compression to his left lower leg. Wound cultures collected previously and showed Streptococcus agalactial, patient to complete the Keflex as previously ordered. The patient educated on the importance of diet on wound healing and instructed to increase protein intake. Patient verbalized understanding. Patient will follow up at the wound healing center in one week. Code Visit 111xxx-113xx: [id number] Sharon subq tissue 20 sq cm/<
[2018-05-27 15:19] VITALS: BP 150/91; PULSE 91; RESP 16; TEMP 37.2
--- NOTE | 2018-05-27 17:44 | PCM.WC.PN ---
(1) Ulcer of left lower extremity with fat layer exposed Status: Acute Current Visit: Yes Code(s): L97.922 - Non-pressure chronic ulcer of unspecified part of left lower leg with fat layer exposed (2) Traumatic leg ulcer Status: Acute Current Visit: Yes Code(s): L97.909 - Non-pressure chronic ulcer of unspecified part of unspecified lower leg with unspecified severity Type of Wound Date of Service: 05/27/18 Chief Complaint: Non healing ulcer to left anterior lower leg. History of Wound: Non healing ulcer to left anterior lower leg that was obtained 04/13/18 when he hit his hanson on the hitch of his truck. He went to the ED where they closed it with sutures. His sister is a nurse and she removed the sutures a week later, then it re-opened after the sutures were removed. He went to his PCP, Dr. Tucker, last week who started him on Keflex 05/03/18 for redness and referred him to the wound center. 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 Will obtain wound cultures today 05/06/18 and start him on Natasha to the open ulcer. Progress of Wound: Wound is improving, patient is utilizing daily Natasha dressing changes, patient is tolerating antibiotics well. Wound culture did show strep agalactai. - Physical Exam Vital Signs Temp Pulse Resp BP 98.9 F 91 16 150/91 H 05/27/18 15:19 05/27/18 15:19 05/27/18 15:19 05/27/18 15:19 General: Alert, Oriented x3, Cooperative HEENT: Atraumatic Oral: Moist Mucosa Extremities: No clubbing, No edema, Capillary Refill Less than 3 Seconds, No Calf Tenderness Skin: No rashes, Ulcer/ Wound - Left anterior lower leg Wound Measurements and Assessment WC - Nurse 1 - General Ulcer Measurement Start: 05/15/18 14:23 Freq: Status: Active Protocol: Activity Type Activity Date Activity User E-Sign Co-Sign Detail Recorded Client Recorded Date Recorded By Document 05/27/18 15:19 DV [id number] 05/27/18 15:31 DV 05/27/18 15:19 Wound Center Nurse 1 [Ulcer Assessment] #1 L Hanson -Current Size (cm) - Length 1.2 -Current Size (cm) - Width 0.9 -Current Size (cm) - Depth 0.4 -Total Square Cm 1.08 -Photo Taken No -Epithelialization Small 1-33% -Tunneling No -Undermining/Tunneling No -Circular Undermining No -Classification - Thickness Full Thickness without Exposed Support Structure -Exudate Amt Small (1-33%) -Exudate Type Serosanguineous -Wound Margin Flat & Intact -Granulation Amt Small (1-33%) -Granulation Quality Pale [place] -Slough/Fibrin Yes -Necrosis Amt Small (1-33%) -Necrotic Tissue Type Adherent Slough -Structure Exposed None/Limited to Skin Breakdown -Texture (Cat-wound Skin Appearance) Assessed -Moisture (Cat-wound Skin Appearance Assessed ) -Color (Cat-wound Skin Appearance) Assessed [Edema Assessment] -Lower Limb Edema Present Yes -Left Calf (cm) 43.2 -Left Ankle (cm) 24.0 WC - Nurse 2 - General Ulcer CM Notes Start: 05/15/18 14:23 Freq: Status: Active Protocol: Activity Type Activity Date Activity User E-Sign Co-Sign Detail Recorded Client Recorded Date Recorded By Document 05/27/18 15:39 [id number] 05/27/18 15:41 05/27/18 15:39 Wound Center Nurse 2 [Procedure/Treatment] #1 L Hanson -Time 15:39 -Correct Patient Yes -Correct Side, Site, Position Yes -Correct Procedure Yes -Procedure Performed Yes -Type of Procedure Debridement -Clinical Debridement Subcutaneous -Post Debridement Size (cm) - Length 2.0 -Post Debridement Size (cm) - Width 0.7 -Post Debridement Size (cm) - Depth 0.4 -Total Square Cm 1.40 -Wound/Ulcer Outcome Not Healed -Ulcer Cleansing Rinsed/ Irrigated with Saline -Foul Odor after Cleansing No -Bioengineered Tissue No -Bleeding Controlled with Pressure -Treatment Response Procedure Tolerated Well [See Physician Procedure note for Specifics] Pain Scale: 0-10 Numeric [Pain] -Is Patient Pain Free? Yes Musculoskeletal: No Tenderness to Palpation of Joints or Extremities, No Muscle Wasting Neurological: Neuro grossly intact Psych/Mental Status: Normal Affect, Appropriate Debridement Note Post-Debridement Measurements/Treatment WC - Nurse 2 - General Ulcer CM Notes Start: 05/15/18 14:23 Freq: Status: Active Protocol: Activity Type Activity Date Activity User E-Sign Co-Sign Detail Recorded Client Recorded Date Recorded By Document 05/15/18 15:17 [id number] 05/15/18 15:18 Document 05/20/18 14:55 [id number] 05/20/18 14:56 Document 05/27/18 15:39 [id number] 05/27/18 15:41 05/15/18 05/20/18 05/27/18 15:17 14:55 15:39 Wound Center Nurse 2 #1 L Hanson -Time 15:17 14:55 15:39 -Correct Patient Yes Yes Yes -Correct Side, Site, Position Yes Yes Yes -Correct Procedure Yes Yes Yes -Procedure Performed Yes Yes Yes -Type of Procedure Debridement Debridement Debridement -Clinical Debridement Subcutaneous Subcutaneous Subcutaneous -Post Debridement Size (cm) - Length 3.0 2.0 2.0 -Post Debridement Size (cm) - Width 1.5 1.1 0.7 -Post Debridement Size (cm) - Depth 0.5 0.4 0.4 -Total Square Cm 4.50 2.20 1.40 -Wound/Ulcer Outcome Not Healed Not Healed Not Healed -Ulcer Cleansing Rinsed/ Rinsed/ Rinsed/ Irrigated with Irrigated with Irrigated with Saline Saline Saline -Foul Odor after Cleansing No No No -Bioengineered Tissue No No No -Topical Lidocaine (%) 4 -Bleeding Controlled with Pressure Pressure Pressure -Treatment Response Procedure Procedure Procedure Tolerated Well Tolerated Well Tolerated Well Pain Scale: 0-10 Numeric Is Patient Pain Free? Yes Yes Yes Wound debrided: Left lower anterior leg Laterality: Left Type of Debridement: Excisional debridement Anesthesia Used: 4% Lidocaine Solution Depth: Down to and including healthy tissue, in the subcutaneous layer Percentage of wound debrided: 100 Instrument Used: 3mm curette Tissue Removed: Subcutaneous tissue and slough Severity: Fat Layer Exposed Amount of bleeding with debridement: Mild Bleeding Controlled with: Pressure Patient tolerated procedure well Assessment/Plan Active Problems Ulcer of left lower extremity with fat layer exposed (Acute) Traumatic leg ulcer (Acute) Assessment: 1. Ulcer of left lower extremity with fat layer exposed (Acute). 2. Traumatic leg ulcer (Acute) Plan: The patient was seen and examined at the wound center today and was updated on the plan of care. A subcutaneous debridement was performed today. The patient tolerated the procedure well. The patients wound care will consist of Natasha to the left anterior, lower leg ulcer. He will also wear tubigrip double layer compression to his left lower leg. Wound cultures collected previously and showed Streptococcus agalactial, patient to complete the Keflex as previously ordered. The patient educated on the importance of diet on wound healing and instructed to increase protein intake. Patient verbalized understanding. Patient will follow up at the wound healing center in one week. Code Visit 111xxx-113xx: [id number] Sharon subq tissue 20 sq cm/<
--- NOTE | 2018-05-29 11:46 | PN.PCM_ITS ---
(1) Ulcer of left lower extremity with fat layer exposed Status: Acute Current Visit: Yes Code(s): L97.922 - Non-pressure chronic ulcer of unspecified part of left lower leg with fat layer exposed (2) Traumatic leg ulcer Status: Acute Current Visit: Yes Code(s): L97.909 - Non-pressure chronic ulcer of unspecified part of unspecified lower leg with unspecified severity Type of Wound Date of Service: 05/27/18 Chief Complaint: Non healing ulcer to left anterior lower leg. History of Wound: Non healing ulcer to left anterior lower leg that was obtained 04/13/18 when he hit his hanson on the hitch of his truck. He went to the ED where they closed it with sutures. His sister is a nurse and she removed the sutures a week later, then it re-opened after the sutures were removed. He went to his PCP, Dr. Tucker, last week who started him on Keflex 05/03/18 for redness and referred him to the wound center. 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 Will obtain wound cultures today 05/06/18 and start him on Natasha to the open ulcer. Progress of Wound: Wound is improving, patient is utilizing daily Natasha dressing changes, patient is tolerating antibiotics well. Wound culture did show strep agalactai. - Physical Exam Vital Signs Temp Pulse Resp BP 98.9 F 91 16 150/91 H 05/27/18 15:19 05/27/18 15:19 05/27/18 15:19 05/27/18 15:19 General: Alert, Oriented x3, Cooperative HEENT: Atraumatic Oral: Moist Mucosa Extremities: No clubbing, No edema, Capillary Refill Less than 3 Seconds, No Calf Tenderness Skin: No rashes, Ulcer/ Wound - Left anterior lower leg Wound Measurements and Assessment WC - Nurse 1 - General Ulcer Measurement Start: 05/15/18 14:23 Freq: Status: Active Protocol: Activity Type Activity Date Activity User E-Sign Co-Sign Detail Recorded Client Recorded Date Recorded By Document 05/27/18 15:19 DV [id number] 05/27/18 15:31 DV 05/27/18 15:19 Wound Center Nurse 1 [Ulcer Assessment] #1 L Hanson -Current Size (cm) - Length 1.2 -Current Size (cm) - Width 0.9 -Current Size (cm) - Depth 0.4 -Total Square Cm 1.08 -Photo Taken No -Epithelialization Small 1-33% -Tunneling No -Undermining/Tunneling No -Circular Undermining No -Classification - Thickness Full Thickness without Exposed Support Structure -Exudate Amt Small (1-33%) -Exudate Type Serosanguineous -Wound Margin Flat & Intact -Granulation Amt Small (1-33%) -Granulation Quality Pale [place] -Slough/Fibrin Yes -Necrosis Amt Small (1-33%) -Necrotic Tissue Type Adherent Slough -Structure Exposed None/Limited to Skin Breakdown -Texture (Cat-wound Skin Appearance) Assessed -Moisture (Cat-wound Skin Appearance Assessed ) -Color (Cat-wound Skin Appearance) Assessed [Edema Assessment] -Lower Limb Edema Present Yes -Left Calf (cm) 43.2 -Left Ankle (cm) 24.0 WC - Nurse 2 - General Ulcer CM Notes Start: 05/15/18 14:23 Freq: Status: Active Protocol: Activity Type Activity Date Activity User E-Sign Co-Sign Detail Recorded Client Recorded Date Recorded By Document 05/27/18 15:39 [id number] 05/27/18 15:41 05/27/18 15:39 Wound Center Nurse 2 [Procedure/Treatment] #1 L Hanson -Time 15:39 -Correct Patient Yes -Correct Side, Site, Position Yes -Correct Procedure Yes -Procedure Performed Yes -Type of Procedure Debridement -Clinical Debridement Subcutaneous -Post Debridement Size (cm) - Length 2.0 -Post Debridement Size (cm) - Width 0.7 -Post Debridement Size (cm) - Depth 0.4 -Total Square Cm 1.40 -Wound/Ulcer Outcome Not Healed -Ulcer Cleansing Rinsed/ Irrigated with Saline -Foul Odor after Cleansing No -Bioengineered Tissue No -Bleeding Controlled with Pressure -Treatment Response Procedure Tolerated Well [See Physician Procedure note for Specifics] Pain Scale: 0-10 Numeric [Pain] -Is Patient Pain Free? Yes Musculoskeletal: No Tenderness to Palpation of Joints or Extremities, No Muscle Wasting Neurological: Neuro grossly intact Psych/Mental Status: Normal Affect, Appropriate Debridement Note Post-Debridement Measurements/Treatment WC - Nurse 2 - General Ulcer CM Notes Start: 05/15/18 14:23 Freq: Status: Active Protocol: Activity Type Activity Date Activity User E-Sign Co-Sign Detail Recorded Client Recorded Date Recorded By Document 05/15/18 15:17 [id number] 05/15/18 15:18 Document 05/20/18 14:55 [id number] 05/20/18 14:56 Document 05/27/18 15:39 [id number] 05/27/18 15:41 05/15/18 05/20/18 05/27/18 15:17 14:55 15:39 Wound Center Nurse 2 #1 L Hanson -Time 15:17 14:55 15:39 -Correct Patient Yes Yes Yes -Correct Side, Site, Position Yes Yes Yes -Correct Procedure Yes Yes Yes -Procedure Performed Yes Yes Yes -Type of Procedure Debridement Debridement Debridement -Clinical Debridement Subcutaneous Subcutaneous Subcutaneous -Post Debridement Size (cm) - Length 3.0 2.0 2.0 -Post Debridement Size (cm) - Width 1.5 1.1 0.7 -Post Debridement Size (cm) - Depth 0.5 0.4 0.4 -Total Square Cm 4.50 2.20 1.40 -Wound/Ulcer Outcome Not Healed Not Healed Not Healed -Ulcer Cleansing Rinsed/ Rinsed/ Rinsed/ Irrigated with Irrigated with Irrigated with Saline Saline Saline -Foul Odor after Cleansing No No No -Bioengineered Tissue No No No -Topical Lidocaine (%) 4 -Bleeding Controlled with Pressure Pressure Pressure -Treatment Response Procedure Procedure Procedure Tolerated Well Tolerated Well Tolerated Well Pain Scale: 0-10 Numeric Is Patient Pain Free? Yes Yes Yes Wound debrided: Left lower anterior leg Laterality: Left Type of Debridement: Excisional debridement Anesthesia Used: 4% Lidocaine Solution Depth: Down to and including healthy tissue, in the subcutaneous layer Percentage of wound debrided: 100 Instrument Used: 3mm curette Tissue Removed: Subcutaneous tissue and slough Severity: Fat Layer Exposed Amount of bleeding with debridement: Mild Bleeding Controlled with: Pressure Patient tolerated procedure well Assessment/Plan Active Problems Ulcer of left lower extremity with fat layer exposed (Acute) Traumatic leg ulcer (Acute) Assessment: 1. Ulcer of left lower extremity with fat layer exposed (Acute). 2. Traumatic leg ulcer (Acute) Plan: The patient was seen and examined at the wound center today and was updated on the plan of care. A subcutaneous debridement was performed today. The patient tolerated the procedure well. The patients wound care will consist of Natasha to the left anterior, lower leg ulcer. He will also wear tubigrip double layer compression to his left lower leg. Wound cultures collected previously and showed Streptococcus agalactial, patient to complete the Keflex as previously ordered. The patient educated on the importance of diet on wound healing and instructed to increase protein intake. Patient verbalized understanding. Patient will follow up at the wound healing center in one week. Code Visit 111xxx-113xx: [id number] Sharon subq tissue 20 sq cm/<
[2018-06-03 14:14] VITALS: BP 148/87; PULSE 113; RESP 18; TEMP 36.6
--- NOTE | 2018-06-03 16:54 | PN.PCM_ITS ---
(1) Ulcer of left lower extremity with fat layer exposed Status: Acute Code(s): L97.922 - Non-pressure chronic ulcer of unspecified part of left lower leg with fat layer exposed (2) Traumatic leg ulcer Status: Acute Code(s): L97.909 - Non-pressure chronic ulcer of unspecified part of unspecified lower leg with unspecified severity Type of Wound Date of Service: 06/03/18 Chief Complaint: Non healing ulcer to left anterior lower leg. History of Wound: Non healing ulcer to left anterior lower leg that was obtained 04/13/18 when he hit his hanson on the hitch of his truck. He went to the ED where they closed it with sutures. His sister is a nurse and she removed the sutures a week later, then it re-opened after the sutures were removed. He went to his PCP, Dr. Tucker, last week who started him on Keflex 05/03/18 for redness and referred him to the wound center. 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 Will obtain wound cultures today 05/06/18 and start him on Natasha to the open ulcer. Progress of Wound: Wound is improving. - Physical Exam Vital Signs Temp Pulse Resp BP 97.8 F 113 H 18 148/87 H 06/03/18 14:14 06/03/18 14:14 06/03/18 14:14 06/03/18 14:14 General: Alert, Oriented x3, Cooperative HEENT: Atraumatic Oral: Moist Mucosa Extremities: No edema, Capillary Refill Less than 3 Seconds, Peripheral Pulses Normal Skin: Ulcer/ Wound - Left anterior lower leg Wound Measurements and Assessment WC - Nurse 1 - General Ulcer Measurement Start: 05/15/18 14:23 Freq: Status: Active Protocol: Activity Type Activity Date Activity User E-Sign Co-Sign Detail Recorded Client Recorded Date Recorded By Document 06/03/18 14:14 DL [id number] 06/03/18 14:21 DL 06/03/18 14:14 Wound Center Nurse 1 [Ulcer Assessment] #1 L Hanson -Current Size (cm) - Length 1.7 -Current Size (cm) - Width 1.1 -Current Size (cm) - Depth 0.2 -Total Square Cm 1.87 -Photo Taken No -Exudate Amt Small (1-33%) -Exudate Type Serosanguineous -Wound Margin Distinct, Outline Attached -Granulation Amt Large (67-100%) -Granulation Quality [place] -Necrosis Amt Small (1-33%) -Necrotic Tissue Type Adherent Slough -Structure Exposed N/A -Texture (Cat-wound Skin Appearance) Scarring -Moisture (Cat-wound Skin Appearance No Abnormality ) -Color (Cat-wound Skin Appearance) No Abnormality Rubor -Temperature (Cat-wound Skin No Abnormality Appearance) (Pt Warm) -Tenderness on Palpation (Cat-wound No Skin Appearance) -Ulcer Cleansing Rinsed/ Irrigated with Saline -Foul Odor after Cleansing No -Anesthetic Used 4% Lidocaine Solution [Edema Assessment] -Left Calf (cm) 40 -Left Ankle (cm) 23.5 WC - Nurse 2 - General Ulcer CM Notes Start: 05/15/18 14:23 Freq: Status: Active Protocol: Activity Type Activity Date Activity User E-Sign Co-Sign Detail Recorded Client Recorded Date Recorded By Document 06/03/18 15:39 [email or web address] 06/03/18 15:40 06/03/18 15:39 Wound Center Nurse 2 [Procedure/Treatment] #1 L Hanson -Time 15:40 -Correct Patient Yes -Correct Side, Site, Position Yes -Correct Procedure Yes -Procedure Performed Yes -Type of Procedure Debridement -Clinical Debridement Subcutaneous -Post Debridement Size (cm) - Length 2 -Post Debridement Size (cm) - Width 0.8 -Post Debridement Size (cm) - Depth 0.3 -Total Square Cm 1.6 -Wound/Ulcer Outcome Not Healed -Ulcer Cleansing Not Cleansed -Foul Odor after Cleansing No -Bioengineered Tissue No -Bleeding Controlled with NA -Treatment Response Procedure Tolerated Well [See Physician Procedure note for Specifics] Pain Scale: 0-10 Numeric [Pain] -Is Patient Pain Free? Yes Musculoskeletal: No Tenderness to Palpation of Joints or Extremities, No Muscle Wasting Neurological: Neuro grossly intact Psych/Mental Status: Normal Affect, Appropriate Debridement Note Post-Debridement Measurements/Treatment - Nurse 2 - General Ulcer CM Notes Start: 05/15/18 14:23 Freq: Status: Active Protocol: Activity Type Activity Date Activity User E-Sign Co-Sign Detail Recorded Client Recorded Date Recorded By Document 05/15/18 15:17 [id number] 05/15/18 15:18 Document 05/20/18 14:55 [id number] 05/20/18 14:56 JF Document 05/27/18 15:39 JF [id number] 05/27/18 15:41 Document 06/03/18 15:39 CS [id number] 06/03/18 15:40 CS 05/15/18 05/20/18 05/27/18 15:17 14:55 15:39 Wound Center Nurse 2 #1 L Hanson -Time 15:17 14:55 15:39 -Correct Patient Yes Yes Yes -Correct Side, Site, Position Yes Yes Yes -Correct Procedure Yes Yes Yes -Procedure Performed Yes Yes Yes -Type of Procedure Debridement Debridement Debridement -Clinical Debridement Subcutaneous Subcutaneous Subcutaneous -Post Debridement Size (cm) - Length 3.0 2.0 2.0 -Post Debridement Size (cm) - Width 1.5 1.1 0.7 -Post Debridement Size (cm) - Depth 0.5 0.4 0.4 -Total Square Cm 4.50 2.20 1.40 -Wound/Ulcer Outcome Not Healed Not Healed Not Healed -Ulcer Cleansing Rinsed/ Rinsed/ Rinsed/ Irrigated with Irrigated with Irrigated with Saline Saline Saline -Foul Odor after Cleansing No No No -Bioengineered Tissue No No No -Topical Lidocaine (%) 4 -Bleeding Controlled with Pressure Pressure Pressure -Treatment Response Procedure Procedure Procedure Tolerated Well Tolerated Well Tolerated Well Pain Scale: 0-10 Numeric Is Patient Pain Free? Yes Yes Yes 06/03/18 15:39 Wound Center Nurse 2 #1 L Hanson -Time 15:40 -Correct Patient Yes -Correct Side, Site, Position Yes -Correct Procedure Yes -Procedure Performed Yes -Type of Procedure Debridement -Clinical Debridement Subcutaneous -Post Debridement Size (cm) - Length 2 -Post Debridement Size (cm) - Width 0.8 -Post Debridement Size (cm) - Depth 0.3 -Total Square Cm 1.6 -Wound/Ulcer Outcome Not Healed -Ulcer Cleansing Not Cleansed -Foul Odor after Cleansing No -Bioengineered Tissue No -Topical Lidocaine (%) -Bleeding Controlled with NA -Treatment Response Procedure Tolerated Well Pain Scale: 0-10 Numeric Is Patient Pain Free? Yes Wound debrided: Left anterior lower leg Laterality: Left Type of Debridement: Excisional debridement Anesthesia Used: 4% Lidocaine Solution Depth: Down to and including healthy tissue, in the subcutaneous layer Percentage of wound debrided: 100 Instrument Used: 3mm curette Tissue Removed: Subcutaneous tissue and slough Severity: Limited To Skin Breakdown Amount of bleeding with debridement: Mild Bleeding Controlled with: Pressure Patient tolerated procedure well Assessment/Plan Assessment: 1. Ulcer of left lower extremity with fat layer exposed (Acute). 2. Traumatic leg ulcer (Acute) Plan: The patient was seen and examined at the wound center today and was updated on the plan of care. A subcutaneous debridement was performed today. The patient tolerated the procedure well. The patients wound care will consist of Natasha to the left anterior, lower leg ulcer. He will also wear tubigrip double layer compression to his left lower leg. Wound cultures collected previously and showed Streptococcus agalactial. Patient completed the Keflex. The patient educated on the importance of diet on wound healing and instructed to increase protein intake. Patient verbalized understanding. Patient will follow up at the wound healing center in one week. Code Visit 111xxx-113xx: [id number] Sharon subq tissue 20 sq cm/<
[2018-06-10 16:11] VITALS: BP 133/77; PULSE 112; RESP 18; TEMP 37.6
--- NOTE | 2018-06-13 10:36 | PCM.WC.PN ---
(1) Ulcer of left lower extremity with fat layer exposed Status: Acute Current Visit: Yes Code(s): L97.922 - Non-pressure chronic ulcer of unspecified part of left lower leg with fat layer exposed (2) Traumatic leg ulcer Status: Acute Current Visit: Yes Code(s): L97.909 - Non-pressure chronic ulcer of unspecified part of unspecified lower leg with unspecified severity Type of Wound Date of Service: 06/10/18 Chief Complaint: Non healing ulcer to left anterior lower leg. History of Wound: Non healing ulcer to left anterior lower leg that was obtained 04/13/18 when he hit his hanson on the hitch of his truck. He went to the ED where they closed it with sutures. His sister is a nurse and she removed the sutures a week later, then it re-opened after the sutures were removed. He went to his PCP, Dr. Tucker, last week who started him on Keflex 05/03/18 for redness and referred him to the wound center. 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 Will obtain wound cultures today 05/06/18 and start him on Natasha to the open ulcer. Progress of Wound: Wound is improving. - Physical Exam Vital Signs Temp Pulse Resp BP 99.6 F H 112 H 18 133/77 H 06/10/18 16:11 06/10/18 16:11 06/10/18 16:11 06/10/18 16:11 General: Alert, Oriented x3, Cooperative HEENT: Atraumatic Oral: Moist Mucosa Lungs: Normal air movement Cardiovascular: Regular rate Extremities: No edema, Capillary Refill Less than 3 Seconds, No Calf Tenderness Skin: Ulcer/ Wound - Left anterior lower leg wound Wound Measurements and Assessment WC - Nurse 1 - General Ulcer Measurement Start: 05/15/18 14:23 Freq: Status: Active Protocol: Activity Type Activity Date Activity User E-Sign Co-Sign Detail Recorded Client Recorded Date Recorded By Document 06/10/18 16:11 [id number] 06/10/18 16:13 06/10/18 16:11 Wound Center Nurse 1 [Ulcer Assessment] #1 L Hanson -Combined with other wound No -Current Size (cm) - Length 1.0 -Current Size (cm) - Width 0.5 -Current Size (cm) - Depth 0.1 -Total Square Cm 0.50 -Photo Taken No -Epithelialization Small 1-33% -Tunneling No -Undermining/Tunneling No -Circular Undermining No -Classification - Thickness Full Thickness without Exposed Support Structure -Exudate Amt Small (1-33%) -Exudate Type Serosanguineous -Wound Margin Distinct, Outline Attached -Granulation Amt Medium (34-66%) -Granulation Quality Red -Slough/Fibrin Yes -Necrosis Amt Medium (34-66%) -Necrotic Tissue Type Adherent Slough -Structure Exposed Fascia Fat Layer Exposed -Texture (Cat-wound Skin Appearance) Assessed Localized Edema Scarring -Moisture (Cat-wound Skin Appearance No Abnormality ) Assessed -Color (Cat-wound Skin Appearance) No Abnormality Assessed -Temperature (Cat-wound Skin No Abnormality Appearance) (Pt Warm) -Tenderness on Palpation (Cat-wound No Skin Appearance) -Ulcer Cleansing Rinsed/ Irrigated with Saline -Foul Odor after Cleansing No -Anesthetic Used 5% Lidocaine Gel [Edema Assessment] -Lower Limb Edema Present Yes -Left Calf (cm) 41.5 -Left Ankle (cm) 24.0 WC - Nurse 2 - General Ulcer CM Notes Start: 05/15/18 14:23 Freq: Status: Active Protocol: Activity Type Activity Date Activity User E-Sign Co-Sign Detail Recorded Client Recorded Date Recorded By Document 06/10/18 16:35 [id number] 06/10/18 16:36 06/10/18 16:35 Wound Center Nurse 2 [Procedure/Treatment] #1 L Hanson -Time 16:36 -Correct Patient Yes -Correct Side, Site, Position Yes -Correct Procedure Yes -Procedure Performed Yes -Type of Procedure Debridement -Clinical Debridement Subcutaneous -Post Debridement Size (cm) - Length 1.9 -Post Debridement Size (cm) - Width 0.4 -Post Debridement Size (cm) - Depth 0.3 -Total Square Cm 0.76 -Wound/Ulcer Outcome Not Healed -Ulcer Cleansing Rinsed/ Irrigated with Saline -Foul Odor after Cleansing No -Bioengineered Tissue No -Bleeding Controlled with Pressure -Treatment Response Procedure Tolerated Well [See Physician Procedure note for Specifics] Pain Scale: 0-10 Numeric [Pain] -Is Patient Pain Free? Yes Musculoskeletal: No Tenderness to Palpation of Joints or Extremities Neurological: Neuro grossly intact Psych/Mental Status: Normal Affect, Appropriate Debridement Note Post-Debridement Measurements/Treatment WC - Nurse 2 - General Ulcer CM Notes Start: 05/15/18 14:23 Freq: Status: Active Protocol: Activity Type Activity Date Activity User E-Sign Co-Sign Detail Recorded Client Recorded Date Recorded By Document 05/15/18 15:17 TM [id number] 05/15/18 15:18 TM Document 05/20/18 14:55 JF [id number] 05/20/18 14:56 JF Document 05/27/18 15:39 JF [id number] 05/27/18 15:41 JF Document 06/03/18 15:39 CS [id number] 06/03/18 15:40 CS Document 06/10/18 16:35 JF [id number] 06/10/18 16:36 05/15/18 05/20/18 05/27/18 15:17 14:55 15:39 Wound Center Nurse 2 #1 L Hanson -Time 15:17 14:55 15:39 -Correct Patient Yes Yes Yes -Correct Side, Site, Position Yes Yes Yes -Correct Procedure Yes Yes Yes -Procedure Performed Yes Yes Yes -Type of Procedure Debridement Debridement Debridement -Clinical Debridement Subcutaneous Subcutaneous Subcutaneous -Post Debridement Size (cm) - Length 3.0 2.0 2.0 -Post Debridement Size (cm) - Width 1.5 1.1 0.7 -Post Debridement Size (cm) - Depth 0.5 0.4 0.4 -Total Square Cm 4.50 2.20 1.40 -Wound/Ulcer Outcome Not Healed Not Healed Not Healed -Ulcer Cleansing Rinsed/ Rinsed/ Rinsed/ Irrigated with Irrigated with Irrigated with Saline Saline Saline -Foul Odor after Cleansing No No No -Bioengineered Tissue No No No -Topical Lidocaine (%) 4 -Bleeding Controlled with Pressure Pressure Pressure -Treatment Response Procedure Procedure Procedure Tolerated Well Tolerated Well Tolerated Well Pain Scale: 0-10 Numeric Is Patient Pain Free? Yes Yes Yes 06/03/18 06/10/18 15:39 16:35 Wound Center Nurse 2 #1 L Hanson -Time 15:40 16:36 -Correct Patient Yes Yes -Correct Side, Site, Position Yes Yes -Correct Procedure Yes Yes -Procedure Performed Yes Yes -Type of Procedure Debridement Debridement -Clinical Debridement Subcutaneous Subcutaneous -Post Debridement Size (cm) - Length 2 1.9 -Post Debridement Size (cm) - Width 0.8 0.4 -Post Debridement Size (cm) - Depth 0.3 0.3 -Total Square Cm 1.6 0.76 -Wound/Ulcer Outcome Not Healed Not Healed -Ulcer Cleansing Not Cleansed Rinsed/ Irrigated with Saline -Foul Odor after Cleansing No No -Bioengineered Tissue No No -Topical Lidocaine (%) -Bleeding Controlled with NA Pressure -Treatment Response Procedure Procedure Tolerated Well Tolerated Well Pain Scale: 0-10 Numeric Is Patient Pain Free? Yes Yes Wound debrided: Left anterior lower leg Laterality: Left Type of Debridement: Excisional debridement Anesthesia Used: 4% Lidocaine Solution Depth: Down to and including healthy tissue, in the subcutaneous layer Percentage of wound debrided: 100 Instrument Used: 3mm curette Tissue Removed: Subcutaneous tissue and slough Severity: Limited To Skin Breakdown Amount of bleeding with debridement: Mild Bleeding Controlled with: Pressure Patient tolerated procedure well Assessment/Plan Active Problems Ulcer of left lower extremity with fat layer exposed (Acute) Traumatic leg ulcer (Acute) Assessment: 1. Ulcer of left lower extremity with fat layer exposed (Acute). 2. Traumatic leg ulcer (Acute) Plan: The patient was seen and examined at the wound center today and was updated on the plan of care. A subcutaneous debridement was performed today. The patient tolerated the procedure well. Will change the wound care from Natasha to collagen hydrogel covered with adaptic. to the left anterior, lower leg ulcer. He will also wear tubigrip double layer compression to his left lower leg. Wound cultures collected previously and showed Streptococcus agalactial. Patient completed the Keflex. The patient educated on the importance of diet on wound healing and instructed to increase protein intake. Patient verbalized understanding. Patient will follow up at the wound healing center in one week. Code Visit 111xxx-113xx: [id number] Sharon subq tissue 20 sq cm/<
--- NOTE | 2018-06-13 10:41 | PN.PCM_ITS ---
(1) Ulcer of left lower extremity with fat layer exposed Status: Acute Current Visit: Yes Code(s): L97.922 - Non-pressure chronic ulcer of unspecified part of left lower leg with fat layer exposed (2) Traumatic leg ulcer Status: Acute Current Visit: Yes Code(s): L97.909 - Non-pressure chronic ulcer of unspecified part of unspecified lower leg with unspecified severity Type of Wound Date of Service: 06/10/18 Chief Complaint: Non healing ulcer to left anterior lower leg. History of Wound: Non healing ulcer to left anterior lower leg that was obtained 04/13/18 when he hit his hanson on the hitch of his truck. He went to the ED where they closed it with sutures. His sister is a nurse and she removed the sutures a week later, then it re-opened after the sutures were removed. He went to his PCP, Dr. Tucker, last week who started him on Keflex 05/03/18 for redness and referred him to the wound center. 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 Will obtain wound cultures today 05/06/18 and start him on Natasha to the open ulcer. Progress of Wound: Wound is improving. - Physical Exam Vital Signs Temp Pulse Resp BP 99.6 F H 112 H 18 133/77 H 06/10/18 16:11 06/10/18 16:11 06/10/18 16:11 06/10/18 16:11 General: Alert, Oriented x3, Cooperative HEENT: Atraumatic Oral: Moist Mucosa Lungs: Normal air movement Cardiovascular: Regular rate Extremities: No edema, Capillary Refill Less than 3 Seconds, No Calf Tenderness Skin: Ulcer/ Wound - Left anterior lower leg wound Wound Measurements and Assessment WC - Nurse 1 - General Ulcer Measurement Start: 05/15/18 14:23 Freq: Status: Active Protocol: Activity Type Activity Date Activity User E-Sign Co-Sign Detail Recorded Client Recorded Date Recorded By Document 06/10/18 16:11 [id number] 06/10/18 16:13 06/10/18 16:11 Wound Center Nurse 1 [Ulcer Assessment] #1 L Hanson -Combined with other wound No -Current Size (cm) - Length 1.0 -Current Size (cm) - Width 0.5 -Current Size (cm) - Depth 0.1 -Total Square Cm 0.50 -Photo Taken No -Epithelialization Small 1-33% -Tunneling No -Undermining/Tunneling No -Circular Undermining No -Classification - Thickness Full Thickness without Exposed Support Structure -Exudate Amt Small (1-33%) -Exudate Type Serosanguineous -Wound Margin Distinct, Outline Attached -Granulation Amt Medium (34-66%) -Granulation Quality Red -Slough/Fibrin Yes -Necrosis Amt Medium (34-66%) -Necrotic Tissue Type Adherent Slough -Structure Exposed Fascia Fat Layer Exposed -Texture (Cat-wound Skin Appearance) Assessed Localized Edema Scarring -Moisture (Cat-wound Skin Appearance No Abnormality ) Assessed -Color (Cat-wound Skin Appearance) No Abnormality Assessed -Temperature (Cat-wound Skin No Abnormality Appearance) (Pt Warm) -Tenderness on Palpation (Cat-wound No Skin Appearance) -Ulcer Cleansing Rinsed/ Irrigated with Saline -Foul Odor after Cleansing No -Anesthetic Used 5% Lidocaine Gel [Edema Assessment] -Lower Limb Edema Present Yes -Left Calf (cm) 41.5 -Left Ankle (cm) 24.0 WC - Nurse 2 - General Ulcer CM Notes Start: 05/15/18 14:23 Freq: Status: Active Protocol: Activity Type Activity Date Activity User E-Sign Co-Sign Detail Recorded Client Recorded Date Recorded By Document 06/10/18 16:35 [id number] 06/10/18 16:36 06/10/18 16:35 Wound Center Nurse 2 [Procedure/Treatment] #1 L Hanson -Time 16:36 -Correct Patient Yes -Correct Side, Site, Position Yes -Correct Procedure Yes -Procedure Performed Yes -Type of Procedure Debridement -Clinical Debridement Subcutaneous -Post Debridement Size (cm) - Length 1.9 -Post Debridement Size (cm) - Width 0.4 -Post Debridement Size (cm) - Depth 0.3 -Total Square Cm 0.76 -Wound/Ulcer Outcome Not Healed -Ulcer Cleansing Rinsed/ Irrigated with Saline -Foul Odor after Cleansing No -Bioengineered Tissue No -Bleeding Controlled with Pressure -Treatment Response Procedure Tolerated Well [See Physician Procedure note for Specifics] Pain Scale: 0-10 Numeric [Pain] -Is Patient Pain Free? Yes Musculoskeletal: No Tenderness to Palpation of Joints or Extremities Neurological: Neuro grossly intact Psych/Mental Status: Normal Affect, Appropriate Debridement Note Post-Debridement Measurements/Treatment WC - Nurse 2 - General Ulcer CM Notes Start: 05/15/18 14:23 Freq: Status: Active Protocol: Activity Type Activity Date Activity User E-Sign Co-Sign Detail Recorded Client Recorded Date Recorded By Document 05/15/18 15:17 TM [id number] 05/15/18 15:18 TM Document 05/20/18 14:55 JF [id number] 05/20/18 14:56 JF Document 05/27/18 15:39 JF [id number] 05/27/18 15:41 JF Document 06/03/18 15:39 CS [id number] 06/03/18 15:40 CS Document 06/10/18 16:35 JF [id number] 06/10/18 16:36 05/15/18 05/20/18 05/27/18 15:17 14:55 15:39 Wound Center Nurse 2 #1 L Hanson -Time 15:17 14:55 15:39 -Correct Patient Yes Yes Yes -Correct Side, Site, Position Yes Yes Yes -Correct Procedure Yes Yes Yes -Procedure Performed Yes Yes Yes -Type of Procedure Debridement Debridement Debridement -Clinical Debridement Subcutaneous Subcutaneous Subcutaneous -Post Debridement Size (cm) - Length 3.0 2.0 2.0 -Post Debridement Size (cm) - Width 1.5 1.1 0.7 -Post Debridement Size (cm) - Depth 0.5 0.4 0.4 -Total Square Cm 4.50 2.20 1.40 -Wound/Ulcer Outcome Not Healed Not Healed Not Healed -Ulcer Cleansing Rinsed/ Rinsed/ Rinsed/ Irrigated with Irrigated with Irrigated with Saline Saline Saline -Foul Odor after Cleansing No No No -Bioengineered Tissue No No No -Topical Lidocaine (%) 4 -Bleeding Controlled with Pressure Pressure Pressure -Treatment Response Procedure Procedure Procedure Tolerated Well Tolerated Well Tolerated Well Pain Scale: 0-10 Numeric Is Patient Pain Free? Yes Yes Yes 06/03/18 06/10/18 15:39 16:35 Wound Center Nurse 2 #1 L Hanson -Time 15:40 16:36 -Correct Patient Yes Yes -Correct Side, Site, Position Yes Yes -Correct Procedure Yes Yes -Procedure Performed Yes Yes -Type of Procedure Debridement Debridement -Clinical Debridement Subcutaneous Subcutaneous -Post Debridement Size (cm) - Length 2 1.9 -Post Debridement Size (cm) - Width 0.8 0.4 -Post Debridement Size (cm) - Depth 0.3 0.3 -Total Square Cm 1.6 0.76 -Wound/Ulcer Outcome Not Healed Not Healed -Ulcer Cleansing Not Cleansed Rinsed/ Irrigated with Saline -Foul Odor after Cleansing No No -Bioengineered Tissue No No -Topical Lidocaine (%) -Bleeding Controlled with NA Pressure -Treatment Response Procedure Procedure Tolerated Well Tolerated Well Pain Scale: 0-10 Numeric Is Patient Pain Free? Yes Yes Wound debrided: Left anterior lower leg Laterality: Left Type of Debridement: Excisional debridement Anesthesia Used: 4% Lidocaine Solution Depth: Down to and including healthy tissue, in the subcutaneous layer Percentage of wound debrided: 100 Instrument Used: 3mm curette Tissue Removed: Subcutaneous tissue and slough Severity: Limited To Skin Breakdown Amount of bleeding with debridement: Mild Bleeding Controlled with: Pressure Patient tolerated procedure well Assessment/Plan Active Problems Ulcer of left lower extremity with fat layer exposed (Acute) Traumatic leg ulcer (Acute) Assessment: 1. Ulcer of left lower extremity with fat layer exposed (Acute). 2. Traumatic leg ulcer (Acute) Plan: The patient was seen and examined at the wound center today and was updated on the plan of care. A subcutaneous debridement was performed today. The patient tolerated the procedure well. Will change the wound care from Natasha to collagen hydrogel covered with adaptic. to the left anterior, lower leg ulcer. He will also wear tubigrip double layer compression to his left lower leg. Wound cultures collected previously and showed Streptococcus agalactial. Patient completed the Keflex. The patient educated on the importance of diet on wound healing and instructed to increase protein intake. Patient verbalized understanding. Patient will follow up at the wound healing center in one week. Code Visit 111xxx-113xx: [id number] Sharon subq tissue 20 sq cm/<
== END 2018-06-13 23:59 ==
LOC: WC 16:00
PROVIDERS: Family Provider Family Medicine; PCP Family Medicine; Visit Provider Nurse Practitioner Family
DX: L97.822 Non-pressure chronic ulcer of other part of left lower leg with fat layer exposed (principal)
CPT/HCPCS: 11042

== ENCOUNTER 2018-06-24 16:00 | Outpatient (RCR) | payer OTHER, SELFPAY ==
[2018-06-14 01:45] VITALS: BP 133/77; PULSE 112; RESP 18; TEMP 37.6
[2018-06-17 16:03] VITALS: BP 163/85; PULSE 110; RESP 16; TEMP 37.1
--- NOTE | 2018-06-17 16:23 | PCM.WC.PN ---
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 History of Wound: Non healing ulcer to left anterior lower leg that was obtained 04/13/18 when he hit his hanson on the hitch of his truck. He went to the ED where they closed it with sutures. His sister is a nurse and she removed the sutures a week later, then it re-opened after the sutures were removed. He went to his PCP, Dr. Tukcer, last week who started him on Keflex 05/03/18 for redness and referred him to the wound center. 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 Wound cultures 05/06/18 showed Streptococcus agalactiae and he completed antibiotics. He was usine Natasha. Switched him last week to collegen hydrogel and there is improvement to his ulcer. Progress of Wound: Wound is improving. - Physical Exam Vital Signs Temp Pulse Resp BP 98.7 F 110 H 16 163/85 H 06/17/18 16:03 06/17/18 16:03 06/17/18 16:03 06/17/18 16:03 General: Alert, Oriented x3, Cooperative HEENT: Atraumatic Oral: Moist Mucosa Lungs: Clear to auscultation Cardiovascular: Regular rate Extremities: No edema, Capillary Refill Less than 3 Seconds Skin: Ulcer/ Wound - Left lower anterior ulcer. Wound Measurements and Assessment WC - Nurse 1 - General Ulcer Measurement Start: 06/17/18 16:03 Freq: Status: Active Protocol: Activity Type Activity Date Activity User E-Sign Co-Sign Detail Recorded Client Recorded Date Recorded By Document 06/17/18 16:03 [id number] 06/17/18 16:05 06/17/18 16:03 Wound Center Nurse 1 [Ulcer Assessment] #1 L Hanson -Combined with other wound No -Current Size (cm) - Length 0.3 -Current Size (cm) - Width 0.1 -Current Size (cm) - Depth 0.1 -Total Square Cm 0.03 -Photo Taken No -Epithelialization Medium 34-66% -Tunneling No -Undermining/Tunneling No -Circular Undermining No -Exudate Amt Small (1-33%) -Exudate Type Serosanguineous -Wound Margin Distinct, Outline Attached -Granulation Amt Medium (34-66%) -Granulation Quality Pale [place] -Slough/Fibrin Yes -Necrosis Amt Small (1-33%) -Necrotic Tissue Type Adherent Slough -Structure Exposed None/Limited to Skin Breakdown -Texture (Cat-wound Skin Appearance) Scarring -Moisture (Cat-wound Skin Appearance No Abnormality ) Assessed -Color (Cat-wound Skin Appearance) No Abnormality Assessed -Temperature (Cat-wound Skin No Abnormality Appearance) (Pt Warm) -Tenderness on Palpation (Cat-wound No Skin Appearance) -Ulcer Cleansing Rinsed/ Irrigated with Saline -Foul Odor after Cleansing No -Anesthetic Used 4% Lidocaine Solution [Edema Assessment] -Lower Limb Edema Present No -Point of Measurement (cm from the 42 distal point) -Point of measurement (cm from the 24 medial instep) WC - Nurse 2 - General Ulcer CM Notes Start: 06/17/18 16:03 Freq: Status: Active Protocol: Activity Type Activity Date Activity User E-Sign Co-Sign Detail Recorded Client Recorded Date Recorded By Document 06/17/18 16:11 [id number] 06/17/18 16:14 [email or web address] 06/17/18 16:11 Wound Center Nurse 2 [Procedure/Treatment] #1 L Hanson -Time 16:12 -Correct Patient Yes -Correct Side, Site, Position Yes -Correct Procedure Yes -Procedure Performed Yes -Type of Procedure Debridement -Clinical Debridement Subcutaneous -Post Debridement Size (cm) - Length 0.4 -Post Debridement Size (cm) - Width 0.4 -Post Debridement Size (cm) - Depth 0.2 -Total Square Cm 0.16 -Wound/Ulcer Outcome Not Healed -Ulcer Cleansing Rinsed/ Irrigated with Saline -Foul Odor after Cleansing No -Bioengineered Tissue No -Bleeding Controlled with Pressure -Offloading No -Treatment Response Procedure Tolerated Well [See Physician Procedure note for Specifics] Pain Scale: 0-10 Numeric [Pain] -Is Patient Pain Free? Yes Musculoskeletal: No Tenderness to Palpation of Joints or Extremities Neurological: Neuro grossly intact Psych/Mental Status: Normal Affect, Appropriate Debridement Note Post-Debridement Measurements/Treatment WC - Nurse 2 - General Ulcer CM Notes Start: 06/17/18 16:03 Freq: Status: Active Protocol: Activity Type Activity Date Activity User E-Sign Co-Sign Detail Recorded Client Recorded Date Recorded By Document 06/17/18 16:11 [id number] 06/17/18 16:14 [email or web address] 06/17/18 16:11 Wound Center Nurse 2 #1 L Hanson -Time 16:12 -Correct Patient Yes -Correct Side, Site, Position Yes -Correct Procedure Yes -Procedure Performed Yes -Type of Procedure Debridement -Clinical Debridement Subcutaneous -Post Debridement Size (cm) - Length 0.4 -Post Debridement Size (cm) - Width 0.4 -Post Debridement Size (cm) - Depth 0.2 -Total Square Cm 0.16 -Wound/Ulcer Outcome Not Healed -Ulcer Cleansing Rinsed/ Irrigated with Saline -Foul Odor after Cleansing No -Bioengineered Tissue No -Bleeding Controlled with Pressure -Offloading No -Treatment Response Procedure Tolerated Well Pain Scale: 0-10 Numeric Is Patient Pain Free? Yes Wound debrided: Left lower anterior leg Laterality: Left Type of Debridement: Excisional debridement Anesthesia Used: 4% Lidocaine Solution Depth: Down to and including healthy tissue, in the subcutaneous layer Percentage of wound debrided: 100 Instrument Used: 3mm curette Tissue Removed: Subcutaneous tissue and slough Severity: Limited To Skin Breakdown Amount of bleeding with debridement: None Bleeding Controlled with: Pressure Patient tolerated procedure well Assessment/Plan Active Problems Ulcer of left lower extremity with fat layer exposed (Acute) Traumatic leg ulcer (Acute) Assessment: 1. Ulcer of left lower extremity with fat layer exposed (Acute). 2. Traumatic leg ulcer (Acute) Plan: The patient was seen and examined at the wound center today and was updated on the plan of care. A subcutaneous debridement was performed today. The patient tolerated the procedure well. Will change the wound care from Natasha to collagen hydrogel covered with adaptic. to the left anterior, lower leg ulcer. He will also wear tubigrip double layer compression to his left lower leg. Wound cultures collected previously and showed Streptococcus agalactial. Patient completed the Keflex. The patient educated on the importance of diet on wound healing and instructed to increase protein intake. Patient verbalized understanding. Patient will follow up at the wound healing center in one week. Code Visit [id number]: [id number] Sharon subq tissue 20 sq cm/<
[2018-06-24 16:00] VITALS: BP 157/89; PULSE 112; RESP 14; TEMP 37.3
--- NOTE | 2018-06-24 16:52 | PN.PCM_ITS ---
(1) Ulcer of left lower extremity with fat layer exposed Status: Acute Current Visit: Yes Code(s): L97.922 - Non-pressure chronic ulcer of unspecified part of left lower leg with fat layer exposed (2) Traumatic leg ulcer Status: Acute Current Visit: Yes Code(s): L97.909 - Non-pressure chronic ulcer of unspecified part of unspecified lower leg with unspecified severity Type of Wound Date of Service: 06/24/18 Chief Complaint: Non healing ulcer to left anterior lower leg. History of Wound: Non healing ulcer to left anterior lower leg that was obtained 04/13/18 when he hit his hanson on the hitch of his truck. He went to the ED where they closed it with sutures. His sister is a nurse and she removed the sutures a week later, then it re-opened after the sutures were removed. He went to his PCP, Dr. Tucker, last week who started him on Keflex 05/03/18 for redness and referred him to the wound center. 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 Wound cultures 05/06/18 showed Streptococcus agalactiae and he completed antibiotics. He was usine Natasha. Switched him last week to collegen hydrogel and there is improvement to his ulcer. Progress of Wound: Wound is healed today. - Physical Exam Vital Signs Temp Pulse Resp BP 99.1 F 112 H 14 157/89 H 06/24/18 16:00 06/24/18 16:00 06/24/18 16:00 06/24/18 16:00 General: Alert, Oriented x3, Cooperative HEENT: Atraumatic Oral: Moist Mucosa Lungs: Normal air movement Cardiovascular: Regular rate Extremities: No edema, Capillary Refill Less than 3 Seconds, Peripheral Pulses Normal Skin: Ulcer/ Wound - Left anterior lower leg is healed. Wound Measurements and Assessment WC - Nurse 1 - General Ulcer Measurement Start: 06/17/18 16:03 Freq: Status: Active Protocol: Activity Type Activity Date Activity User E-Sign Co-Sign Detail Recorded Client Recorded Date Recorded By Document 06/24/18 16:00 [id number] 06/24/18 16:01 06/24/18 16:00 Wound Center Nurse 1 [Ulcer Assessment] #1 L Hanson -Combined with other wound No -Current Size (cm) - Length 0.1 -Current Size (cm) - Width 0.1 -Current Size (cm) - Depth 0.1 -Total Square Cm 0.01 -Date of Last Picture (Recall this 06/24/18 field) -Photo Taken Yes -Epithelialization Large 67-100% -Temperature (Cat-wound Skin No Abnormality Appearance) (Pt Warm) -Tenderness on Palpation (Cat-wound No Skin Appearance) -Ulcer Cleansing Rinsed/ Irrigated with Saline -Foul Odor after Cleansing No -Anesthetic Used 4% Lidocaine Solution [Edema Assessment] -Lower Limb Edema Present No -Left Calf (cm) 41 -Left Ankle (cm) 22 - Nurse 2 - General Ulcer CM Notes Start: 06/17/18 16:03 Freq: Status: Active Protocol: Activity Type Activity Date Activity User E-Sign Co-Sign Detail Recorded Client Recorded Date Recorded By Document 06/24/18 16:10 [id number] 06/24/18 16:11 06/24/18 16:10 Wound Center Nurse 2 [Procedure/Treatment] #1 L Hanson -Correct Patient No -Correct Side, Site, Position No -Correct Procedure No -Procedure Performed No -Post Debridement Size (cm) - Length 0 -Post Debridement Size (cm) - Width 0 -Post Debridement Size (cm) - Depth 0 -Total Square Cm 0 -Wound/Ulcer Outcome Healed- Epithelialized [See Physician Procedure note for Specifics] Pain Scale: 0-10 Numeric [Pain] -Is Patient Pain Free? Yes Musculoskeletal: No Tenderness to Palpation of Joints or Extremities Neurological: Neuro grossly intact Psych/Mental Status: Normal Affect, Appropriate Debridement Note Post-Debridement Measurements/Treatment - Nurse 2 - General Ulcer CM Notes Start: 06/17/18 16:03 Freq: Status: Active Protocol: Activity Type Activity Date Activity User E-Sign Co-Sign Detail Recorded Client Recorded Date Recorded By Document 06/17/18 16:11 [id number] 06/17/18 16:14 Document 06/24/18 16:10 [id number] 06/24/18 16:11 06/17/18 06/24/18 16:11 16:10 Wound Center Nurse 2 #1 L Hanson -Time 16:12 -Correct Patient Yes No -Correct Side, Site, Position Yes No -Correct Procedure Yes No -Procedure Performed Yes No -Type of Procedure Debridement -Clinical Debridement Subcutaneous -Post Debridement Size (cm) - Length 0.4 0 -Post Debridement Size (cm) - Width 0.4 0 -Post Debridement Size (cm) - Depth 0.2 0 -Total Square Cm 0.16 0 -Wound/Ulcer Outcome Not Healed Healed- Epithelialized -Ulcer Cleansing Rinsed/ Irrigated with Saline -Foul Odor after Cleansing No -Bioengineered Tissue No -Bleeding Controlled with Pressure -Offloading No -Treatment Response Procedure Tolerated Well Pain Scale: 0-10 Numeric Is Patient Pain Free? Yes Yes No debridement was completed today Assessment/Plan Active Problems Ulcer of left lower extremity with fat layer exposed (Acute) Traumatic leg ulcer (Acute) Assessment: 1. Ulcer of left lower extremity with fat layer exposed (Acute). 2. Traumatic leg ulcer (Acute) Plan: The patient was seen and examined at the wound center today and was updated on the plan of care. He has been using Collagen Hydrogel for his wound care and he has been wearing tubigrip double layer compression to his left lower leg. Wound cultures collected previously and showed Streptococcus agalactial. His wound was healed today. Instructed him that the skin is fragile and he should continue to use lotion daily and massage the area. When he is at work, he needs to wear the tubigrips for compression and protection while he is at work. We will discharge him today from the wound center. Code Visit Office Visits / Consults: [id number] OV L3 Est
== END 2018-07-14 23:59 ==
LOC: WC 16:00
PROVIDERS: Family Provider Family Medicine; PCP Family Medicine; Visit Provider Nurse Practitioner Family
DX: L97.822 Non-pressure chronic ulcer of other part of left lower leg with fat layer exposed (principal); Z86.19 Personal history of other infectious and parasitic diseases
CPT/HCPCS: 11042; 99212; G0463

== ENCOUNTER 2018-09-17 14:55 | Emergency (ER) | payer OTHER, SELFPAY ==
[2018-09-17 14:57] VITALS: BP 146/112; PULSE 90; RESP 17; TEMP 37.4; O2SAT 100; BMI 36.3
--- NOTE | 2018-09-17 15:05 | RAD_ITS ---
STUDY: X-RAY - LEFT HAND REASON FOR EXAM: Male, 23 years old. Foreign body. TECHNIQUE: 3 view(s) of the hand. COMPARISON: None. FINDINGS: Normal radiocarpal articulation. Normal distal radioulnar joint. Normal visualized carpal bones. Normal carpal articulations Normal carpometacarpal articulation of the thumb. Normal second through fifth carpometacarpal joints. Normal metacarpi. Normal metacarpophalangeal joint of the thumb. Normal interphalangeal joint of the thumb. Normal proximal and distal phalanges of the thumb. Normal metacarpophalangeal joints of the second through fifth fingers. Normal proximal and distal interphalangeal joints of the second through fifth fingers. Normal phalanges of the second through fifth fingers. There is evidence of a 2.1 cm metallic nail in the soft tissues between the proximal portions of the third and fourth metacarpals. The nail enters from the palmar aspect. RAD/Hand Min 3 Views IMPRESSION: 2.1 cm metallic nail in the soft tissues between the proximal portions of the third and fourth metacarpals. Electronically Signed: Guero Tejada, at 15:35 EST , Service support ,
--- NOTE | 2018-09-17 16:04 | ED.DCSUM_ITS ---
- ER Visit Summary Date of Service: 09/17/18 Chief Complaint: Left hand injury History of Present Illness: The patient is a 23 M who is left-hand dominant presents to the emergency department left hand injury. Patient was at work. He was using a concrete nail gun. He states he got the gun jammed. He shot up quickly and the nail dislodged. It hit concrete and then ricocheted. He states it ended up in the palm of his hand. This was on his left hand. He states he has some pain when he tries to move the hand and some tingling in his fingertips. He denies other injury. He is otherwise healthy. Physical Examination: Exam is relatively unremarkable. Patient does have flexio n and extension of the hand. He does have paresthesias in the tips, but his two-point discrimination is preserved. He has a very small puncture wound with no visible foreign body. Pulses are normal. Test Results: [] Emergency Department Course and Treatment: X-rays were obtained. This does appear to have a large nail that is embedded completely in the hand. It is not visible. I am hesitant to try to remove this given the amount of force that would be required and how deeply embedded today's through the significant structures of the hand. I discussed this with the patient. He was given Ancef. He was discussed with [facility] will be transferred for hand evaluation. Treatment Plan: [] Disposition: Transfer Impression: 1. Left hand embedded foreign body This note was generated with [employer] dictation software. It may contain incorrect words, spelling, and punctuation that were not noted in review of the chart prior to signing ED Disposition - Plan for ED Patient: Referrals: Dusty Tucker MD [Primary Care Provider] -
[2018-09-17] MEDS: Morphine 4 MG/ML Syringe IV (16:10)
[2018-09-17] MEDS: Cefazolin 1 GM/50 ML BAG IV (16:10)
--- NOTE | 2018-09-17 16:21 | NURSING ---
CALLED [facility] FOR TRANSPORT. ETA IS ABOUT 20 MIN
[2018-09-17 16:47] VITALS: BP 150/95; PULSE 100; RESP 16; O2SAT 100
== END 2018-09-17 16:57 | disposition short-term general hospital (02) ==
PROVIDERS: Emergency Provider Emergency Medicine; Family Provider Family Medicine; PCP Family Medicine
DX: S60.552A Superficial foreign body of left hand, initial encounter (principal); W45.0XXA Nail entering through skin, initial encounter; Y93.9 Activity, unspecified; Y92.89 Other specified places as the place of occurrence of the external cause; Y99.0 Civilian activity done for income or pay
CPT/HCPCS: 73130; 96365; 96375; 99283; J7030; A4216